=== PATIENT | male | born 1965 | race Hispanic/Latino ===

== ENCOUNTER 2021-08-17 07:21 | Day surgery (SDC) | payer OTHER ==
[2021-08-14 16:14] LABS: Absolute Lymphocytes (CBC) 1.9 K/uL (0.7-4.9); Lymphocytes % 23.3 % (15.3-44.8); MPV 8.1 fL (7.6-11.3); RBC Red Blood Cell Count 3.39 M/uL (4.33-5.43)
[2021-08-14 16:24] LABS: Protime INR 0.94
--- NOTE | 2021-08-14 16:43 | RAD REPORT ---
EXAM DESCRIPTION: Ty Ward And Elizabeth (2 Views)08/14/2021 4:09 pm CLINICAL HISTORY: Preop COMPARISON: None FINDINGS: The lungs appear clear of acute infiltrate. The heart is normal size IMPRESSION: No acute abnormalities displayed
[2021-08-17] MEDS ORDERED: NA CHLORIDE 0.9% 1,000 ML ONE (07:45)
[2021-08-17 08:14] VITALS: O2SAT 100
[2021-08-17] MEDS ORDERED: propofoL 200 MG/20 ML VIAL IV ONE ×2 (08:31)
[2021-08-17] MEDS ORDERED: LIDOCAINE 1% MPF 5 ML VIAL ONE (08:31)
[2021-08-17] MEDS ORDERED: MIDAZOLAM HCL 2 MG/2 ML INJ ONE (08:31)
--- NOTE | 2021-08-17 09:08 | ENDO RPT ---
[address], [address] EGD PROCEDURE REPORT EXAM DATE: 08/17/2021 PATIENT NAME: Zach Isabel MR#: [id number] BIRTHDATE: 1965 ATTENDING: Chato Suggs DR STATUS: outpatient SHAGGER: Mora Araujo RN and Nicanor Jose [facility] INDICATIONS: The patient is a 55 yr old Male here for an EGD due to anemia PROCEDURE PERFORMED: EGD with biopsy for H. pylori MEDICATIONS: Per Anesthesia. TOPICAL ANESTHETIC: none CONSENT: The patient understands the risks and benefits of the procedure and understands that these risks include, but are not limited to: sedation, allergic reaction, infection, perforation and/or bleeding. Alternative means of evaluation and treatment include, among others: physical exam, x-rays, and/or surgical intervention. The patient elects to proceed with this endoscopic procedure. DESCRIPTION OF PROCEDURE: During intra-op preparation period all mechanical medical equipment was checked for proper function. Hand hygiene and appropriate measures for infection prevention was taken. Procedure, possible complications, and alternatives including but not limited to the possibility of bleeding, perforation, tear, infection, sepsis, need for surgery, need for blood transfusion, and anesthesia related complications were explained to the patient. After the risks, benefits and alternatives of the procedure were thoroughly explained, Informed consent was verified, confirmed and timeout was successfully executed by the treatment team. The patient was placed in the left lateral position. The patient was anesthetized with topical anesthesia. Through the anesthetized oropharyngeal area, the scope was passed without any difficulty. The [id number] ([id number]) endoscope was introduced through the mouth and advanced to the second portion of the duodenum. Retroflexed views revealed a small hiatal hernia. The gastroscope was then slowly withdrawn and removed. Mild gastritis was found in the body and the antrum of the stomach. A biopsy for H. pylori was taken. Multiple biopsies were obtained and sent to pathology. A small hiatal hernia was found in the gastroesophageal junction. A biopsy for H. pylori was taken. ADVERSE EVENTS: There were no complications. IMPRESSIONS: 1. Mild gastritis was found in the body and the antrum of the stomach 2. A small hiatal hernia was found in the gastroesophageal junction RECOMMENDATIONS: 1. follow-up: office 2 week(s) 2. anti-reflux regimen 3. await biopsy results 4. follow-up of helicobacter pylori status, treat if indicated REPEAT EXAM: Chato Suggs DR eSigned: Chato Suggs DR 08/17/2021 9:07 AM cc: CPT CODES: ICD9 CODES: PATIENT NAME: Zach Isabel MR#: [id number]
--- NOTE | 2021-08-17 09:10 | ENDO RPT ---
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 INDICATIONS: The patient is a 55 yr old Male here for a colonoscopy due to anemia PROCEDURE PERFORMED: Screening Colonoscopy and Colonoscopy MEDICATIONS: Per Anesthesia. ESTIMATED BLOOD LOSS: None CONSENT: The patient understands the risks and benefits of the procedure and understands that these risks include, but are not limited to: sedation, allergic reaction, infection, perforation and/or bleeding. Alternative means of evaluation and treatment include, among others: physical exam, x-rays, and/or surgical intervention. The patient elects to proceed with this endoscopic procedure. DESCRIPTION OF PROCEDURE: During intra-op preparation period all mechanical medical equipment was checked for proper function. Hand hygiene and appropriate measures for infection prevention was taken. Procedure, possible complications, alternatives including, but not limited to possibility of bleeding, perforation, tear, infection, sepsis, need for surgery, need for blood transfusion, were explained to the patient. After the risks, benefits and alternatives of the procedure were thoroughly explained, Informed consent was verified, confirmed and timeout was successfully executed by the treatment team. The patient was placed in the left lateral position. A digital rectal exam was performed and revealed increased firmness of the prostate, A digital rectal exam was performed and revealed an enlarged prostate, and A digital rectal exam was performed and revealed internal hemorrhoids. After appropriate level of anesthesia, the scope was passed. The [id number] ([id number]) endoscope was introduced through the anus and advanced to the cecum, which was identified by both the appendix and ileocecal valve. The quality of the prep was fair. The instrument was then slowly withdrawn as the colon was fully examined. Scope withdrawal time was 10 minutes. COLON FINDINGS: Small internal hemorrhoids were found. The colon mucosa was otherwise normal. Retroflexed views revealed no abnormalities. The scope was then completely withdrawn from the patient and the procedure terminated. ADVERSE EVENTS: There were no complications. IMPRESSIONS: 1. Small internal hemorrhoids 2. The colon mucosa was otherwise normal RECOMMENDATIONS: 1. avoid NSAIDS for 2 weeks 2. fiber rich diet 3. follow-up: office 2 week(s) 4. Monitor for any evidence of rectal bleeding. 5. hemorrhoidal hygiene 6. yearly hemoquant RECALL: Return in 5 year(s) for Colonoscopy. Chato Suggs DR eSigned: Chato Suggs DR 08/17/2021 9:10 AM cc: CPT CODES: ICD9 CODES: PATIENT NAME: Zach Isabel MR#: [id number]
[2021-08-17 09:58] VITALS: BP 106/56; TEMP 97.6
== END 2021-08-17 09:48 | disposition home or self-care (01) ==
LOC: OR 07:21 → EDBD 08:30 → OR 09:48
PROVIDERS: ATTEND Surgery
PROC: 0DB68ZX Excision of Stomach, Via Natural or Artificial Opening Endoscopic, Diagnostic (ICD-10-PCS; 2021-08-17)
PROC: 0DB48ZX Excision of Esophagogastric Junction, Via Natural or Artificial Opening Endoscopic, Diagnostic (ICD-10-PCS; 2021-08-17)
PROC: 0DJD8ZZ Inspection of Lower Intestinal Tract, Via Natural or Artificial Opening Endoscopic (ICD-10-PCS; 2021-08-17)
PROC: 0DB98ZX Excision of Duodenum, Via Natural or Artificial Opening Endoscopic, Diagnostic (ICD-10-PCS; principal; 2021-08-17 08:30)
PROC: 0DB78ZX Excision of Stomach, Pylorus, Via Natural or Artificial Opening Endoscopic, Diagnostic (ICD-10-PCS; 2021-08-17 08:30)
DX: D50.0 Iron deficiency anemia secondary to blood loss (chronic) (principal); K29.50 Unspecified chronic gastritis without bleeding; K64.8 Other hemorrhoids; N40.0 Benign prostatic hyperplasia without lower urinary tract symptoms; K21.00 Gastro-esophageal reflux disease with esophagitis, without bleeding; K52.9 Noninfective gastroenteritis and colitis, unspecified; R53.83 Other fatigue; R14.0 Abdominal distension (gaseous); Z20.822 Contact with and (suspected) exposure to COVID-19
CPT/HCPCS: 93005; 85025; 36415; 88312 ×2; 85610; 82947 ×2; 88305; 85730; 71046; 43239; 45378; U0003; J2704 ×2; J2250; J7030

== ENCOUNTER 2022-04-09 13:05 | Inpatient (IN) | payer OTHER ==
--- OUTSIDE RECORDS SUMMARY | 2022-04-09 13:09 | XMS REPORT | Continuity of Care Document ---
:1965 Author Organization [facility] t Address [address] [place] [address] Care Team Providers Name Role Phone AmezcuaEliazar santiagomyra Ambrose Primary Care Physician SHILPI IRVING Attending Clinician Unavailable Shilpi Irving Attending Clinician Unavailable Doctor Unassigned, [facility] Attending Clinician Unavailable Louisa Storey RN Attending Clinician CODY GONZALEZ Attending Clinician Unavailable Kate Mcdonough Attending Clinician Cody Gonzalez MD Attending Clinician ROCIO_T Attending Clinician Unavailable Chato Suggs Attending Clinician [phone] CODY GONZALEZ Admitting Clinician Unavailable Cody Gonzalez MD Admitting Clinician ROCIO_Sarthak Admitting Clinician Unavailable Payers Payer Name Policy Type Policy Number Effective Date Expiration Date [facility] [id number] 2020 [facility] 00:00:00 ON LICENSE OF [facility] 3 SHARE PROGRAM (HMO) Problems Condition Condition Condition Status Onset Resolution Last Treating Co mments Source Name Details Category Date Date Treatment Clinician Date Obesity Obesity Disease Active Univers (BMI (BMI 2-15 ity of 30-39.9) 30-39.9) 00:00: [place] 00 Medical [place] Osteomyeli Osteomyeli Disease Active U nivers tis of tis of 2-14 ity of fourth [place] of left of left Medical foot foot Branch Allergies, Adverse Reactions, Alerts Allergy Allergy Status Severity Reaction(s) Onset Inactive Treating Comm ents Source Name Type Date Date Clinician No Known DA Active U 2021-04 [facility] Drug -04 Allergie 00:00: s No Known DA Active U [facility]03 Allergie 00:00: s 00 NO KNOWN Drug Active Univers ALLERGIE Class ity of S [facility] Social History Social Habit Start Date Stop Date Quantity Comments Source Exposure to Not sure [facility]-CoV- [facility] (event) [place] Tobacco use and 2021-06-01 2021-06-01 Smokeless tobacco Un iversity of exposure 00:00:00 00:00:00 non-user [facility] Sex Assigned At [birth year] Universit y of 00:00:00 00:00:00 [facility] Smoking Status Start Date Stop Date Source Never smoked tobacco [facility] Medications Ordered Filled Start Stop Current Ordering Indication Dosage Frequency Signature Comments Components Source Medication Medication Date Date Medication? Clinician (SIG) Name Name collagenase Yes [id number] Apply to Univers 250 2-19 affected ity of unit/gram 00:00: area(s) [place] ointment 00 daily. Medical Branch NaCl 0.9% Yes 2g Infuse 2 g Un ajay (NS) PgBk 2-19 every 24 ity of 100 mL with 00:00: (twenty-fo [place] cefTRIAXone 00 ur) hours. Me dical 2 gram SolR Branch 2 g collagenase Yes [id number] Apply to Univers 250 2-19 affected ity of unit/gram 00:00: area(s) [place] ointment 00 daily. Medical Branch NaCl 0.9% Yes 2g Infuse 2 g Un ajay (NS) PgBk 2-19 every 24 ity of 100 mL with 00:00: (twenty-fo [place] cefTRIAXone 00 ur) hours. Me dical 2 gram SolR Branch 2 g collagenase Yes [id number] Apply to Univers 250 2-19 affected ity of unit/gram 00:00: area(s) [place] ointment 00 daily. Medical Branch NaCl 0.9% 0 Yes 2g Infuse 2 g Un ajay (NS) PgBk 2-19 every 24 ity of 100 mL with 00:00: (twenty-fo [place] cefTRIAXone 00 ur) hours. Me dical 2 gram SolR Branch 2 g cefTRIAXone 0 Yes 2000mg 2,000 mg, Univers (ROCEPHIN) 2-18 IV ity of 2,000 mg in 17:30: Piggyback, [place] NaCl 0.9% 00 Q24H ABX, Medic al (NS) 100 mL First dose Br anch MINI-BAG on Tue06/05/21 at 1130, Until Discontinu ed, Administer over 30 Minutes, 100 mL
Reas on for Anti-Infec tive: Documented Infection< br>Documen chato Infection Site: Skin / Soft Tissue
Duration of Therapy: Other (see Comments) aspirin 81 2021-0 Yes 81mg Take 81 mg U nivers mg chewable 2-18 by mouth ity of tablet 16:21: daily. [address] metFORMIN 2021-0 Yes 1000mg Take 1,000 Univers 1,000 mg 2-18 mg by ity of tablet 16:21: mouth 2 [place] [address] ([facility]) [facility] daily with meals. lisinopriL 2021-0 Yes 20mg Take 20 mg U nivers 20 mg 2-18 by mouth 2 ity of tablet 16:21: (two) [place] [address] times [facility] daily. Branch aspirin 81 2021-0 Yes 81mg Take 81 mg U nivers mg chewable 2-18 by mouth ity of tablet 16:21: daily. [address] metFORMIN 2021-0 Yes 1000mg Take 1,000 Univers 1,000 mg 2-18 mg by ity of tablet 16:21: mouth 2 [place] [address] ([facility]) [facility] daily with meals. lisinopriL 2022-0 Yes 20mg Take 20 mg U nivers 20 mg 2-18 by mouth 2 ity of tablet 16:21: (two) [address] daily[address] Branch aspirin 81 2021-0 Yes 81mg Take 81 mg U nivers mg chewable 2-18 by mouth ity of tablet 16:21: daily. [place] 19 Medical Branch metFORMIN 0 Yes 1000mg Take 1,000 Univers 1,000 mg 2-18 mg by ity of tablet 16:21: mouth 2 [place] 19 (two) Medical times Branch daily with meals. lisinopriL Yes 20mg Take 20 mg U nivers 20 mg 2-18 by mouth 2 ity of tablet 16:21: (two) [place] 19 times Medical daily. Branch ciprofloxac 2021- No 500mg Take 500 Univers in HCl 2-18 02-18 mg by ity of (CIPRO) 500 13:59: 00:00 [place] mg tablet 00 :00 every 12 Medica l (twelve) Branch hours. metroNIDAZO 2021- No 500mg Take 500 Univers LE 500 mg 2-18 02-18 mg by ity of tablet 13:59: 00:00 mouth [place] 00 :00 every 8 Medical (eight) Branch hours. vancomycin Yes 1250mg 1,250 mg, Univers 1250 mg in 2-18 IV ity of NS 250 mL 02:30: Infusion, [place] as RTU IV 00 Q8H ABX, Medical Piggyback First dose Bran ch 1,250 mg on Cindy 06/04/21 at 2030, Until Discontinu ed, Administer over 90 Minutes
Reason for Anti-Infec tive: Documented Infection< br>Documen chato Infection Site: Bone
Du ration of Therapy: Other (see Comments) vancomycin/ 2021- No 1250mg 1,250 mg Univers 0.9 % sod 18 -23 by IV ity of chloride 00:00: 04:59 [place] (VANCOMYCIN 00 :00 route Medical 1250 MG IN every 8 Branch NS 250 ML) (eight) 1.25 hours. gram/250 mL Soln vancomycin/ 2021- No 1250mg 1,250 mg Univers 0.9 % sod 18 03-23 by IV ity of chloride 00:00: 04:59 [place] (VANCOMYCIN 00 :00 route Medical 1250 MG IN every 8 Branch NS 250 ML) (eight) 1.25 hours. gram/250 mL Soln sennosides 2021- No [id number] 8.6mg Take 1 Univers 8.6 mg 2-18 -21 tablet by ity of tablet 00:00: 04:59 mouth [place] 00 :00 daily for Medical 30 days. [place] docusate No [id number] 100mg Take 1 Univers 100 mg 2-18 - capsule by ity of capsule 00:00: 04:59 mouth [place] 00 :00 daily for Medical 30 days. [place] sennosides No [id number] 8.6mg Take 1 Univers 8.6 mg 2-18 - tablet by ity of tablet 00:00: 04:59 mouth [place] 00 :00 daily for Medical 30 days. [place] docusate No [id number] 100mg Take 1 Univers 100 mg 2-18 - capsule by ity of capsule 00:00: 04:59 mouth [place] 00 :00 daily for Medical 30 days. [place] lidocaine 5mL 5 mL, Univer s 1% (PF) 06-04 Subcutaneo ity o f (XYLOCAINE) 18:00: 21:45 us, ONCE, [place] injection 5 00 :00 1 dose, On Me dical mL [facility] 06/04/21 at 1200, Routine NaCl 0.9% Yes 10mL 10 mL, Univer s (NS) 06-04 Slow IV ity of injection 17:53: Push, PRN, [place] 10 mL 22 Starting Medical on [facility] 06/04/21 at 1153, Until Discontinu ed, Routine, line maintenanc e sennosides Yes 8.6mg 8.6 mg, Uni vers (SENOKOT) 06-04 Oral, BID, ity of tablet 8.6 14:00: First dose [place] mg 00 on [facility] 06/04/21 at Branch 0800, Until Discontinu ed, Routine polyethylen No 17g 17 g, Univ ers e glycol 06-04 Oral, ity of 3350 powder 13:30: 14:14 ONCE, 1 [place] 17 g 00 :00 dose, On Medical [facility] 06/04/21 at 0730, Routine vancomycin No 1000mg 1,000 mg, Univers (VANCOCIN) 2-16 -17 IV ity of 1,000 mg in 18:00: 20:26 [place], [place] NaCl 0.9% 00 :54 Q8H ABX, Medica l (NS) 250 mL First dose Br anch VIAL-MATE on Tue IV 06/03/21 at piggyback 1200, Until Discontinu ed, Administer over 60 Minutes, 250 mL
Reas on for Anti-Infec tive: Documented Infection< br>Documen chato Infection Site: Blood
D uration of Therapy: 7 days aspirin 2021-0 Yes 81mg 81 mg, Univers chewable 2-16 Oral, ity of tablet 81 15:00: DAILY, [place] mg 00 First dose Medical on Tue [place] 06/03/21 at 0900, Until Discontinu ed, Routine enoxaparin 0 Yes 40mg 40 mg, Unive rs (LOVENOX) 2-16 Subcutaneo ity of injection 15:00: us, DAILY, [place] 40 mg 00 First dose Medical on Tue [place] 06/03/21 at 0900, Until Discontinu ed, Routine collagenase 2021-0 Yes Topical Uni vers (SANTYL) 2-16 (Apply To ity of ointment 01:00: Affected [place] 00 Areas), Medical DAILY, Branch First dose on Tue06/02/21 at 1900, Until Discontinu ed, Routine lisinopriL 0 Yes 20mg 20 mg, Unive rs (PRINIVIL,Z 2-15 Oral, BID, it y of ESTRIL) 22:00: First dose [place] tablet 20 00 on Tue [facility] mg 06/02/21 at Branch 1600, Until Discontinu ed, Routine docusate 2021-0 Yes 100mg 100 mg, Unive rs (COLACE) 2-15 Oral, BID, ity o f capsule 100 02:00: First dose [place] mg 00 on Tue [facility] 06/01/21 at Branch 2000, Until Discontinu ed, Routine NaCl 0.9% 2021-0 Yes 1000mL at 100 Univ ers (NS) IV 2-14 mL/hr, IV ity of infusion 23:30: Infusion, [place] 1,000 mL 00 CONTINUOUS Medic al , Starting Branch on Tue06/01/21 at 1730, Until Discontinu ed, Routine Sliding 2022-0 Yes Subcutaneo Univ ers Scale 2-14 us, TID ity of Insulin - 23:00: MEALS+HS, [place] Lispro 00 First dose Medical (HumaLOG) + on Tue Branch Fsbg 06/01/21 at Testing 1700, Until Discontinu ed, Routine NaCl 0.9% 0 202- No 30mL/kg at 999 Un ajay (NS) bolus 06-01-14 mL/hr, ity of infusion 22:45: 22:39 2,448 mL [place] 2,448 mL 00 :00 (30 mL/kg Medica l ?81.6 kg), Branch IV Infusion, ONCE, 1 dose, On Tue06/01/21 at 1645, STAT ondansetron Yes 4mg 4 mg, Slow Univers (ZOFRAN 06-01 IV Push, ity of (PF)) 22:25: Q6HPRN, [place] injection 4 41 Starting Medi karlo mg on Tue Branch 06/01/21 at 1625, Until Discontinu ed, Routine, Nausea and Vomiting (N/V) acetaminoph Yes 650mg 650 mg, Un ajay en 14 Oral, ity of (TYLENOL) 22:25: Q6HPRN, [place] tablet 650 23 Starting Medic al mg on Tue Branch 06/01/21 at 1625, Until Discontinu ed, Routine, Pain (scale 1-3), Temp > 38.5 C piperacilli 0 2021- No 3.375g 3.375 g, Univers n-tazobacta 06-01-14 IV ity of m (ZOSYN) 21:15: 21:12 [place]gyback, [place] 3.375 g in 00 :00 ONCE, 1 Medica l NaCl 0.9% dose, On Branch (NS) 100 mL Mon MINI-BAG 06/01/21 at 1515, Administer over 30 Minutes, 100 mL
Reas on for Anti-Infec tive: Documented Infection< br>Documen chato Infection Site: Skin / Soft Tissue
Duration of Therapy: Other (see Comments) atorvastati atorvastati No atorvastat [place] n 20 mg n 20 mg in 20 mg Commu ni tablet TAKE tablet TAKE tablet ty 1 TABLET BY 1 TABLET BY TAKE 1 Hospita MOUTH ONCE MOUTH ONCE TABLET BY l DAILY IN DAILY IN MOUTH ONCE C linics THE EVENING THE EVENING DAILY IN WITH SUPPER WITH SUPPER THE EVENING WITH SUPPER gabapentin gabapentin No gabapentin [place] 300 mg 300 mg 300 mg Communi capsule capsule capsule ty TAKE 1 TAKE 1 TAKE 1 Hospita CAPSULE BY CAPSULE BY CAPSULE BY l MOUTH TWICE MOUTH TWICE MOUTH Clinics DAILY DAILY TWICE DAILY glimepiride glimepiride No glimepirid [place] 2 mg tablet 2 mg tablet e 2 mg Communi TAKE 1 TAKE 1 tablet ty TABLET BY TABLET BY TAKE 1 Hos padmini MOUTH ONCE MOUTH ONCE TABLET BY l DAILY IN DAILY IN MOUTH ONCE C linics THE MORNING THE MORNING DAILY IN WITH WITH THE BREAKFAST BREAKFAST MORNING WITH BREAKFAST glyburide 5 glyburide 5 No glyburide [place] mg tablet mg tablet 5 mg Commu ni TAKE 1 TAKE 1 tablet ty TABLET BY TABLET BY TAKE 1 Hos padmini MOUTH ONCE MOUTH ONCE TABLET BY l DAILY WITH DAILY WITH MOUTH ONCE Clinics BREAKFAST BREAKFAST DAILY WITH OR THE OR THE BREAKFAST FIRST MAIN FIRST MAIN OR THE MEAL OF THE MEAL OF THE FIRST MAIN DAY. DAY. MEAL OF THE DAY. lisinopril lisinopril No lisinopril [place] 10 mg 10 mg 10 mg Communi tablet TAKE tablet TAKE tablet ty 1 TABLET BY 1 TABLET BY TAKE 1 Hospita MOUTH ONCE MOUTH ONCE TABLET BY l DAILY DAILY MOUTH ONCE Clinics DAILY lisinopril lisinopril No lisinopril [place] 20 mg 20 mg 20 mg Communi tablet TAKE tablet TAKE tablet ty 1 TABLET BY 1 TABLET BY TAKE 1 Hospita MOUTH ONCE MOUTH ONCE TABLET BY l DAILY DAILY MOUTH ONCE Clinics DAILY metformin metformin No metformin [place] 1,000 mg 1,000 mg 1,000 mg Com kacy tablet TAKE tablet TAKE tablet ty 1 TABLET BY 1 TABLET BY TAKE 1 Hospita MOUTH TWICE MOUTH TWICE TABLET BY l DAILY DAILY MOUTH Clinics TWICE DAILY omeprazole omeprazole No omeprazole [place] 40 mg 40 mg 40 mg Communi capsule,del capsule,del capsule,de ty ayed ayed layed Hospita release release release l TAKE 1 TAKE 1 TAKE 1 Clinics CAPSULE BY CAPSULE BY CAPSULE BY MOUTH IN MOUTH IN MOUTH IN THE MORNING THE MORNING THE 1 2 HOUR 1 2 HOUR MORNING 1 BEFORE BEFORE 2 HOUR BREAKFAST BREAKFAST BEFORE BREAKFAST Vital Signs Vital Name Observation Time Observation Value Comments Source Systolic blood 2021-06-05 17:02:00 168 mm[Hg] Univer sity of pressure [facility] Diastolic blood 2021-06-05 17:02:00 87 mm[Hg] [facility] of [facility] Heart rate 2021-06-05 17:02:00 80 /min [facility] Body temperature 2021-06-05 17:02:00 36.56 [facility] Respiratory rate 2021-06-05 17:02:00 18 /min [facility] acute hospital Oxygen saturation in 2021-06-05 17:02:00 100 /min [facility] Arterial blood by [facility] Pulse oximetry [place] Body height 2021-06-02 02:07:00 165.1 cm [facility] Body weight 2021-06-02 02:07:00 87.091 kg [facility] BMI 2021-06-02 02:07:00 31.95 kg/m2 [facility] Procedures Procedure Date / Time Performing Clinician Source Performed REFERRAL- 2021-12-22 05:01:00 Doctor Unassigned, [facility] REQUEST/RESPONSE [facility] POCT GLUCOSE (AUTOMATED) 2021-06-05 17:32:00 Cody Gonzalez [facility] POCT GLUCOSE (AUTOMATED) 2021-06-05 13:25:00 Cody Gonzalez [facility] CBC WITH DIFF 2021-06-05 09:26:00 Demar Mendoza [facility] BASIC METABOLIC PANEL 2021-06-05 09:26:00 Demar Mendoza [facility] (NA, K, CL, CO2, GLUCOSE, Medica l Branch BUN, CREATININE, CA) POCT GLUCOSE (AUTOMATED) 2021-06-05 02:05:00 Cody Gonzalez [facility] POCT GLUCOSE (AUTOMATED) 2021-06-04 23:06:00 Cody Gonzalez [facility] XR CHEST 1 VW 2021-06-04 22:30:02 Cody Gonzalez o f [facility] VANCOMYCIN TROUGH 2021-06-04 17:23:00 Martine Butler [facility] POCT GLUCOSE (AUTOMATED) 2021-06-04 17:06:00 Cody Gonzalez [facility] POCT GLUCOSE (AUTOMATED) 2021-06-04 13:29:00 Cody Gonzalez [facility] CBC WITH DIFF 2021-06-04 08:33:00 Demar Mendoza [facility] BASIC METABOLIC PANEL 2021-06-04 08:33:00 Demar Mendoza [facility] (NA, K, CL, CO2, GLUCOSE, Medica l Branch BUN, CREATININE, CA) POCT GLUCOSE (AUTOMATED) 2021-06-04 01:56:00 Cody Gonzalez [facility] POCT GLUCOSE (AUTOMATED) 2021-06-03 22:22:00 Cody Gonzalez [facility] SEDIMENTATION RATE 2021-06-03 21:58:00 Marsha Pickens [facility] C-REACTIVE PROTEIN 2021-06-03 21:58:00 Marsha Pickens [facility] POCT GLUCOSE (AUTOMATED) 2021-06-03 17:14:00 Cody Gonzalez [facility] LOWER EXTREMITY ARTERIAL 2021-06-03 16:02:00 Neo Natarajan [facility] DUPLEX BILATERAL - BY Medical [facility] VASCULAR LAB POCT GLUCOSE (AUTOMATED) 2021-06-03 13:42:00 Cody Gonzalez [facility] CBC WITH DIFF 2021-06-03 10:21:00 Aysha Carrington [facility] BASIC METABOLIC PANEL 2021-06-03 10:21:00 Aysha Carrington [facility] (NA, K, CL, CO2, GLUCOSE, Medica l Branch BUN, CREATININE, CA) VANCOMYCIN TROUGH 2021-06-03 10:21:00 Alber Hector [facility] POCT GLUCOSE (AUTOMATED) 2021-06-03 02:45:00 Cody Gonzalez [facility] POCT GLUCOSE (AUTOMATED) 2021-06-02 23:04:00 [place], Cody [facility] POCT GLUCOSE (AUTOMATED) 2021-06-02 17:28:00 Carlos [facility] POCT GLUCOSE (AUTOMATED) 2021-06-02 13:30:00 [facility] WITH DIFF 2021-06-02 10:38:[address] [facility] BASIC METABOLIC PANEL 2021-06-02 10:38:00 Carlos [facility] (NA, K, CL, CO2, GLUCOSE, Medica l Branch BUN, CREATININE, CA) POCT GLUCOSE (AUTOMATED) 2021-06-02 02:57:00 [facility] ([facility]) 2021-06-01 23:20:00 [facility] BLO[facility] 2021-06-01 20:40:00 [facility] CBC WITH DIFF 2021-06-01 20:39:00 Kate Kramer [facility] GLYCOSYLATED HEMOGLOBIN 2021-06-01 20:39:00 Carlos [facility] (A1C) Medical Branch COVID-19 (ID NOW RAPID 2021-06-01 20:39:00 Kate Krmaer [facility] TESTING) Medical Branch LAB ONLY COVID 2021-06-01 20:39:00 Kate Kramer [facility] INTERPRETATION [facility] BLOOD CULTURE SCREEN 2021-06-01 20:39:00 [facility] COMP. METABOLIC PANEL 2021-06-01 20:39:00 Kate [facility] ([id number]) Medical Branch XR FOOT 3+ VW LEFT 2021-06-01 20:25:00 Kate Kramer [facility] US, gallbladder 2020-10-09 00:00:00 [facility] Plan of Care Planned Activity Planned Date Details Comments Source Diagnostic Test 2020-10-09 CMP, serum or Critical access hospital Pending 00:00:00 plasma [code = Hospital Clin ics CMP, serum or plasma] Diagnostic Test 2020-10-09 CBC w/ auto diff [place] C ommunity Pending 00:00:00 [code = CBC w/ Hospital Clin ics auto diff] Diagnostic Test 2020-10-09 lipase, serum or [place] C ommunity Pending 00:00:00 plasma [code = Hospital Clin ics lipase, serum or plasma] Diagnostic Test 2020-10-09 culture, stool [place] Com munity Pending 00:00:00 [code = culture, Hospital Cl inics stool] Diagnostic Test 2020-10-09 O&P (ova & [place] Commu nity Pending 00:00:00 parasites), stool Hospital C linics [code = O&P (ova & parasites), stool] Diagnostic Test 2020-10-09 wbc, stool [code = [place] Community Pending 00:00:00 wbc, stool] Hospital Clinic s Encounters Start End Encounter Admission Attending Care Care Encounter Source Date/Time Date/Time Type Type Clinicians Facility Department ID 2022-01-27 [id number] 13:30:00 [id number] [facility] 2022-02-19 2022-02-19 Outpatient Elective Maria Fernanda [facility] [id number] [facility] 06:34:00 14:45:00 Shilpi 72 2022-02-19 2022-02-19 Outpatient [facility] [id number] [facility] 06:34:00 06:34:00 72 2021-12-22 2021-12-22 Orders Doctor BROOKE [id number] Univers 00:00:00 00:00:00 Only Unassigned, SAMM [id number] ity of [facility] [id number] [place] [id number] Medi karlo 009 Branch 2021-06-08 2021-06-08 Transition KRISTY Storey [id number] Univers 00:00:00 00:00:00 of Care Louisa TIRADO [id number] i ty of [place] [id number] [place] [id number] Medi kar[place] 403 Branch 2021-06-01 2021-06-05 Inpatient X CARLOS [facility] SAMUEL [id number] Univers 13:42:00 16:20:00 CODY javedmarc [facility] [facility] 2021-06-01 2021-06-05 [facility] Kate Kramer [facility] [id number] Univers 13:42:00 16:20:00 Encounter Cody [id number] [facility] [id number] [facility] [id number] [facility] 081 Branch 2020-10-09 2020-10-09 Outpatient ROCIO_T [facility] [place] 11:03:00 11:03:00 0624 [facility] 2020-10-09 2020-10-09 [facility] [place] 00:00:00 00:00:00 [facility] MD: [address] [facility] [address] [place], Specialty l [address] [place] [address] , Ph. 2020-10-09 2020-10-09 Outpatient Rocio [facility] [id number] 00:00:00 00:00:00 Chato [id number] [place] [id number] 2020-09-30 2020-09-30 Outpatient WILEY [facility] [place] 10:32:00 10:32:00 0615 [facility] ty [facility] Results Test Description Test Time Test Comments Results Result Comments Source Complete Blood Count w/o Diff 2022-02-19 08:30:00 Test Item Value Reference Range Interpretation Comme nts White Blood Count (test code = WBCT) 6.7 x10 3/uL 4.4-10.5 N Red Blood Count (test code = RBC) 3.08 x10 6/uL 4.10-5.70 L Hemoglobin (test code = HGBT) 8.6 g/dL 13.4-17.4 L Hematocrit (test code = HCTT) 26.7 % 38.7-52.0 L Mean Corpuscular Volume (test code = MCV) 86.70 fL 80.00-100.00 N Mean Corpuscular Hemoglobin (test code = MCH) 27.9 pg 27.0-32. 5 N Mean Corpuscular HGB Conc (test code = MCHC) 32.20 g/dL 32.00-37. 50 N RDW Coefficient of Variation (test code = RDWCV) 15.5 % 11.5- 14.5 H Platelet Count (test code = PLTT) 400.0 x10 3/uL 140.0-440.0 N Mean Platelet Volume (test code = MPV) 10.1 fL nRBC Abs (test code = NRBCA) 0 nRBC Pct (test code = NRBCP) 0 % Prothrombin Time [id number] 08:30:00 Test Item Value Reference Range Interpretation Comments Prothrombin Time 10.8 Seconds 9.3-12.1 N (test code = PT) INR (test code = 1.0 ratio 0.9-1.2 N Reference I nterval is INR) for non-anticoagula chato patients.Sugges chato INR Therapeutic Range for Vitamin K antogonistthera py:LEV ELS OFTHERAPY INDICATIONS TAR GET INR RANGEStanda rd Dose Venous Thrombosis, 2.0 - 3.0 Atrial Fibrilla tion, Pulmonary Embolism.High D ose Valvular Heart Disease, 2.5 - 3.5 Mechanical Hear t, Intracardiac Thrombosis. Partial Thromboplastin [id number] 08:30:00 Test Item Value Reference Range Interpretation Comments Partial Thromboplastin Time 30.3 Seconds 23.9-32.8 N (test code = PTT) Comprehensive Metabolic [id number] 08:30:00 Test Item Value Reference Range Interpretation Comments SODIUM (test code = NA) 137.0 mmol/L 136.0-145.0 N Potassium,K (test code = K) 4.6 mmol/L 3.0-5.1 N Chloride (test code = CL) 104 mmol/L 98-107 N Carbon Dioxide (test code = CO2) 24 mmol/L 20-31 N Anion Gap (test code = GAP) 9 mmol/L 5-15 N Blood Urea Nitrogen (test code = 38 mg/dL 9-23 H BUN) Creatinine (test code = CREATT) 1.40 mg/dL 0.55-1.02 H Creatinine Clr Calc Pharmacy 62.88 mL/min (test code = CRCLPHA) Estimated GFR ( Nancy > 60 mL/min/1.73m2 (test code = EGFRAA) Estimated GFR (Non Afr Nancy 56 mL/min/1.73m2 (test code = EGFRNAA) BUN/Creatinine Ratio (test code 27 ratio 10-20 H = BCRATIO) Glucose (test code = GLU) 102 mg/dL 74-106 N Osmolality,Calculated (test code 292.5 = OSMOC) Calcium (test code = CA) 8.9 mg/dL 8.3-10.6 N Bilirubin,Total (test code = 0.2 mg/dL 0.2-1.1 N BILIT) Aspartate Amino Transferase 13 U/L 0-34 N (test code = AST) Alanine Aminotransferase (test 15 U/L 10-49 N code = ALT) Total Protein (test code = TP) 8.4 g/dL 5.7-8.2 H Albumin Level (test code = ALB) 4.6 g/dL 3.2-4.8 N Globulin (test code = GLOB) 3.8 mg/dL 2.3-3.5 H Albumin/Globulin Ratio (test 1.2 ratio 0.8-2.0 N code = AGRATIO) Alkaline Phosphatase (test code 113 U/L 46-116 N = ALP) Lipid [id number] 08:30:00 Test Item Value Reference Range Interpretation Comments Triglycerides (test code 135 mg/dL 9-200 N = TRIG) Cholesterol (test code = 104 mg/dL 0-200 N CHOL) LDL 46 mg/dL 0-130 N LDL (mg/dL)Opti mal Cholesterol,Calculated <100N ear Optimal (test code = LDLC) 100-129Bo rderline High 130-159Hig h 160-189Very Hig h >=190 VLDL CHOLESTEROL (test 27 mg/dL code = VLDL) HDL Cholesterol (test 31 mg/dL 40-60 L code = HDL) LDL/HDL Ratio (test code 1 = LDLHDL) Chol/HDL Ratio (test code 3.4 ratio 0.0-5.0 N = CHLHDL) POCT GLUCOSE (AUTOMATED)2021-06-05 17:40:57 Test Item Value Reference Range Interpretation Comments POCT GLU (test code = 8699452070) 198 mg/dL 70-110 H Lab Interpretation (test code = Abnormal 81548-1) [facility] GLUCOSE (AUTOMATED)2021-06-05 13:46:20 Test Item Value Reference Range Interpretation Comments POCT GLU (test code = 7643646158) 236 mg/dL 70-110 H Lab Interpretation (test code = Abnormal 88775-7) [facility] GLUCOSE (AUTOMATED)2021-06-05 13:46:20 Test Item Value Reference Range Interpretation Comments POCT GLU (test code = 9977730004) 121 mg/dL 70-110 H Lab Interpretation (test code = Abnormal 82974-2) [facility] METABOLIC PANEL (NA, K, CL, CO2, GLUCOSE, BUN, CREATININE, CA)2021-06-05 09:51:41 Test Item Value Reference Range Interpretation Comments NA (test code = 134 mmol/L 135-145 L 8447381183) K (test code = 3.9 mmol/L 3.5-5.0 9038179569) CL (test code = 104 mmol/L 98-108 0522976880) CO2 TOTAL (test code = 27 mmol/L 23-31 6655149689) AGAP (test code = 2-16 3618235140) BUN (test code = 11 mg/dL 7-23 7168100655) GLUCOSE (test code = 140 mg/dL 70-110 H 1318085000) CREATININE (test code = 0.70 mg/dL 0.60-1.25 3062530194) CALCIUM (test code = 8.2 mg/dL 8.6-10.6 L 3783462390) eGFR (test code = mL/min/1.73m2 0198293106) SHIKHA (test code = SHIKHA) Association of Glomerular Filtration Rate (GFR) and Staging of Kidney Disease* + --+ --+ ------+| GFR (mL/min/1.73 m2) ?| With Kidney Damage ?| ?Without Kidney Damage+ --------+ --------+ +| ?>90 ?| ?Stage one ?| ? Normal ?+ ---+ ---+ -------+| ?60-89 ?| ?Stage two ?| ? Decreased GFR ? + --+ --+ ------+| ?30-59 ?| ?Stage three ?| ? Stage three ? + --+ --+ ------+| ?15-29 ?| ?Stage four ? | ? Stage four ?+ ---+ ---+ -------+| ?<15 (or dialysis) ? ?| ?Stage five ? | ? Stage five ?+ ---+ ---+ -------+ *Each stage assumes the associated GFR level has been in effect for at least three months. ?Stages 1 to 5, with or without kidney disease, indicate chronic kidney disease. Notes: Determination of stages one and two (with eGFR >59mL/min/1.73 m2) requires estimation of kidney damage for at least three months as defined by structural or functional abnormalities of the kidney, manifested by either:Pathological abnormalities or Markers of kidney damage (including abnormalities in the composition of the blood or urine or abnormalities in imaging tests). Lab Interpretation Abnormal (test code = 39115-7) [facility] WITH [id number] 09:39:22 Test Item Value Reference Range Interpretation Comments WBC (test code = See_Comment [Automated 1990-2) message] The sy stem which generated this result transmitted reference range : 4.20 - 10.70 10*3/?L. The reference range was not used to interpret this result as normal/abnormal . RBC (test code = See_Comment L [Automated 939-8) message] The sy stem which generated this result transmitted reference range : 4.26 - 5.52 10*6/?L. The reference range was not used to interpret this result as normal/abnormal . HGB (test code = 9.2 g/dL 12.2-16.4 L 718-7) HCT (test code = 27.2 % 38.4-49.3 L 4544-3) MCV (test code = 84.2 fL 81.7-95.6 787-2) MCH (test code = 28.5 pg 26.1-32.7 785-6) MCHC (test code = 33.8 g/dL 31.2-35.0 786-4) RDW-SD (test code = 39.8 fL 38.5-51.6 33084-7) RDW-CV (test code = 13.0 % 12.1-15.4 788-0) PLT (test code = See_Comment H [Automated 777-3) message] The sy stem which generated this result transmitted reference range : 150 - 328 10*3/ ?L. The reference r heather was not used to interpret this result as normal/abnormal . MPV (test code = 9.4 fL 9.8-13.0 L 77567-6) NRBC/100 WBC (test See_Comment [Automat ed code = 1608043917) message] The system which generated this result transmitted reference range : 0.0 - 10.0 /100 WBCs. The refer ence range was not u sed to interpret th is result as normal/abnormal . NRBC x10^3 (test code <0.01 See_Comment [Auto mated = 4589236480) message] The s ystem which generated this result transmitted reference range : 10*3/?L. The reference range was not used to interpret this result as normal/abnormal . GRAN MAT (NEUT) % 61.5 % (test code = 770-8) IMM GRAN % (test code 0.90 % = 6816212711) LYMPH % (test code = 20.3 % 736-9) MONO % (test code = 11.8 % 5905-5) EOS % (test code = 4.7 % 713-8) BASO % (test code = 0.8 % 706-2) GRAN MAT x10^3(ANC) 5.68 10*3/uL 1.99-6.95 (test code = 4043581826) IMM GRAN x10^3 (test 0.08 10*3/uL 0.00-0.06 H code = 0658257254) LYMPH x10^3 (test code 1.87 10*3/uL 1.09-3.23 = 731-0) MONO x10^3 (test code 1.09 10*3/uL 0.36-1.02 H = 742-7) EOS x10^3 (test code = 0.43 10*3/uL 0.06-0.53 711-2) BASO x10^3 (test code 0.07 10*3/uL 0.01-0.09 = 704-7) Lab Interpretation Abnormal (test code = 84926-4) [facility] GLUCOSE (AUTOMATED)2021-06-04 23:17:01 Test Item Value Reference Range Interpretation Comments POCT GLU (test code = 9436549262) 120 mg/dL 70-110 H Lab Interpretation (test code = Abnormal 64979-2) [facility] Please draw trough BEFORE the 4th dose scheduled on 06/04 @ 1200, but no more than 60 mins before the dose is due.2021-06-04 18:52:11 Test Item Value Reference Range Interpretation Comments VANCO TROUGH (test code 11.0 ug/mL 10.0-20.0 = 6803841569) SHIKHA (test code = SHIKHA) Toxic Range: ?>20 ug/mL 15-20 ug/mL is recommended for severe infection or when Vancomycin BLADIMIR is greater than or equal to 2. Lab Interpretation (test Normal code = 14741-1) [facility] GLUCOSE (AUTOMATED)2021-06-04 17:54:13 Test Item Value Reference Range Interpretation Comments POCT GLU (test code = 0552216702) 249 mg/dL 70-110 H Lab Interpretation (test code = Abnormal 56217-2) [facility]-REACT[facility] [id number] 16:15:47 Test Item Value Reference Range Interpretation Comments CRP (test code = 5055128559) 5.4 mg/dL <0.8 H Lab Interpretation (test code = Abnormal 90034-5) [facility] GLUCOSE (AUTOMATED)2021-06-04 14:06:00 Test Item Value Reference Range Interpretation Comments POCT GLU (test code = 4949689734) 157 mg/dL 70-110 H Lab Interpretation (test code = Abnormal 19029-0) [facility] GLUCOSE (AUTOMATED)2021-06-04 13:50:00 Test Item Value Reference Range Interpretation Comments POCT GLU (test code = 8472830213) 204 mg/dL 70-110 H Lab Interpretation (test code = Abnormal 00179-2) [facility] METABOLIC PANEL (NA, K, CL, CO2, GLUCOSE, BUN, CREATININE, CA)2021-06-04 10:26:33 Test Item Value Reference Range Interpretation Comments NA (test code = 136 mmol/L 135-145 3609759224) K (test code = 3.8 mmol/L 3.5-5.0 4649636079) CL (test code = 107 mmol/L 98-108 2025200296) CO2 TOTAL (test code = 25 mmol/L 23-31 5571048183) AGAP (test code = 2-16 6193402401) BUN (test code = 10 mg/dL 7-23 7757990914) GLUCOSE (test code = 138 mg/dL 70-110 H 8037582251) CREATININE (test code = 0.65 mg/dL 0.60-1.25 7626776146) CALCIUM (test code = 8.3 mg/dL 8.6-10.6 L 5760747417) eGFR (test code = mL/min/1.73m2 0034748235) SHIKHA (test code = SHIKHA) Association of Glomerular Filtration Rate (GFR) and Staging of Kidney Disease* + --+ --+ ------+| GFR (mL/min/1.73 m2) ?| With Kidney Damage ?| ?Without Kidney Damage+ --------+ --------+ +| ?>90 ?| ?Stage one ?| ? Normal ?+ ---+ ---+ -------+| ?60-89 ?| ?Stage two ?| ? Decreased GFR ? + --+ --+ ------+| ?30-59 ?| ?Stage three ?| ? Stage three ? + --+ --+ ------+| ?15-29 ?| ?Stage four ? | ? Stage four ?+ ---+ ---+ -------+| ?<15 (or dialysis) ? ?| ?Stage five ? | ? Stage five ?+ ---+ ---+ -------+ *Each stage assumes the associated GFR level has been in effect for at least three months. ?Stages 1 to 5, with or without kidney disease, indicate chronic kidney disease. Notes: Determination of stages one and two (with eGFR >59mL/min/1.73 m2) requires estimation of kidney damage for at least three months as defined by structural or functional abnormalities of the kidney, manifested by either:Pathological abnormalities or Markers of kidney damage (including abnormalities in the composition of the blood or urine or abnormalities in imaging tests). Lab Interpretation Abnormal (test code = 96136-8) [facility] WITH [id number] 10:17:29 Test Item Value Reference Range Interpretation Comments WBC (test code = See_Comment [Automated 6690-2) message] The sy stem which generated this result transmitted reference range : 4.20 - 10.70 10*3/?L. The reference range was not used to interpret this result as normal/abnormal . RBC (test code = See_Comment L [Automated 789-8) message] The sy stem which generated this result transmitted reference range : 4.26 - 5.52 10*6/?L. The reference range was not used to interpret this result as normal/abnormal . HGB (test code = 10.0 g/dL 12.2-16.4 L 718-7) HCT (test code = 29.7 % 38.4-49.3 L 4544-3) MCV (test code = 83.2 fL 81.7-95.6 787-2) MCH (test code = 28.0 pg 26.1-32.7 785-6) MCHC (test code = 33.7 g/dL 31.2-35.0 786-4) RDW-SD (test code = 39.6 fL 38.5-51.6 03338-8) RDW-CV (test code = 13.1 % 12.1-15.4 788-0) PLT (test code = See_Comment H [Automated 777-3) message] The sy stem which generated this result transmitted reference range : 150 - 328 10*3/ ?L. The reference r heather was not used to interpret this result as normal/abnormal . MPV (test code = 10.3 fL 9.8-13.0 64349-0) NRBC/100 WBC (test See_Comment [Automat ed code = 7555708216) message] The system which generated this result transmitted reference range : 0.0 - 10.0 /100 WBCs. The refer ence range was not u sed to interpret th is result as normal/abnormal . NRBC x10^3 (test code <0.01 See_Comment [Auto mated = 5507118871) message] The s ystem which generated this result transmitted reference range : 10*3/?L. The reference range was not used to interpret this result as normal/abnormal . GRAN MAT (NEUT) % 57.4 % (test code = 770-8) IMM GRAN % (test code 0.80 % = 0332496018) LYMPH % (test code = 23.9 % 736-9) MONO % (test code = 12.2 % 5905-5) EOS % (test code = 4.9 % 713-8) BASO % (test code = 0.8 % 706-2) GRAN MAT x10^3(ANC) 5.18 10*3/uL 1.99-6.95 (test code = 0248762131) IMM GRAN x10^3 (test 0.07 10*3/uL 0.00-0.06 H code = 5597667146) LYMPH x10^3 (test code 2.15 10*3/uL 1.09-3.23 = 731-0) MONO x10^3 (test code 1.10 10*3/uL 0.36-1.02 H = 742-7) EOS x10^3 (test code = 0.44 10*3/uL 0.06-0.53 711-2) BASO x10^3 (test code 0.07 10*3/uL 0.01-0.09 = 704-7) Lab Interpretation Abnormal (test code = 39715-1) [facility] GLUCOSE (AUTOMATED)2021-06-03 22:40:15 Test Item Value Reference Range Interpretation Comments POCT GLU (test code = 9249457670) 120 mg/dL 70-110 H Lab Interpretation (test code = Abnormal 25563-9) [facility]icsSEDIMENTATION [id number] 22:39:55 Test Item Value Reference Range Interpretation Comments ESR (test code = >120 See_Comment H [Automated message] 3013487351) The system [employer] generated this result transmitted ref erence range: 0 - 10 m m/HR. The reference r heather was not used to interpret this result as normal/abnor mal. Lab Interpretation (test Abnormal code = 24549-4) [facility] GLUCOSE (AUTOMATED)2021-06-03 17:24:39 Test Item Value Reference Range Interpretation Comments POCT GLU (test code = 8756953931) 180 mg/dL 70-110 H Lab Interpretation (test code = Abnormal 39545-7) [facility])2021-06-03 13:50:55 Test Item Value Reference Range Interpretation Comments POCT GLU (test code = 2000002319) 122 mg/dL 70-110 H Lab Interpretation (test code = Abnormal 86783-1) [facility]ics[facility] T[facility] Level - Please draw trough BEFORE the 4th dose scheduled on 06/03 @ 0445, but no more than 60 mins before the dose is due.2021-06-03 12:19:53 Test Item Value Reference Range Interpretation Comments VANCO TROUGH (test code 9.4 ug/mL 10.0-20.0 L = 6791846264) SHIKHA (test code = SHIKHA) Toxic Range: ?>20 ug/mL 15-20 ug/mL is recommended for severe infection or when Vancomycin BLADIMIR is greater than or equal to 2. Lab Interpretation (test Abnormal code = 80277-3) [facility] (NA, K, CL, CO2, GLUCOSE, BUN, CREATININE, CA)2021-06-03 12:14:54 Test Item Value Reference Range Interpretation Comments NA (test code = 136 mmol/L 135-145 4323939903) K (test code = 4.2 mmol/L 3.5-5.0 7457068305) CL (test code = 107 mmol/L 98-108 6278556981) CO2 TOTAL (test code = 25 mmol/L 23-31 2057526559) AGAP (test code = 2-16 9424554962) BUN (test code = 11 mg/dL 7-23 4840808993) GLUCOSE (test code = 123 mg/dL 70-110 H 7319026675) CREATININE (test code = 0.68 mg/dL 0.60-1.25 1891900979) CALCIUM (test code = 8.3 mg/dL 8.6-10.6 L 6841264763) eGFR (test code = mL/min/1.73m2 8487714365) SHIKHA (test code = SHIKHA) Association of Glomerular Filtration Rate (GFR) and Staging of Kidney Disease* + --+ --+ ------+| GFR (mL/min/1.73 m2) ?| With Kidney Damage ?| ?Without Kidney Damage+ --------+ --------+ +| ?>90 ?| ?Stage one ?| ? Normal ?+ ---+ ---+ -------+| ?60-89 ?| ?Stage two ?| ? Decreased GFR ? + --+ --+ ------+| ?30-59 ?| ?Stage three ?| ? Stage three ? + --+ --+ ------+| ?15-29 ?| ?Stage four ? | ? Stage four ?+ ---+ ---+ -------+| ?<15 (or dialysis) ? ?| ?Stage five ? | ? Stage five ?+ ---+ ---+ -------+ *Each stage assumes the associated GFR level has been in effect for at least three months. ?Stages 1 to 5, with or without kidney disease, indicate chronic kidney disease. Notes: Determination of stages one and two (with eGFR >59mL/min/1.73 m2) requires estimation of kidney damage for at least three months as defined by structural or functional abnormalities of the kidney, manifested by either:Pathological abnormalities or Markers of kidney damage (including abnormalities in the composition of the blood or urine or abnormalities in imaging tests). Lab Interpretation Abnormal (test code = 35934-8) [facility] WITH [id number] 11:12:01 Test Item Value Reference Range Interpretation Comments WBC (test code = See_Comment [Automated 9590-2) message] The sy stem which generated this result transmitted reference range : 4.20 - 10.70 10*3/?L. The reference range was not used to interpret this result as normal/abnormal . RBC (test code = See_Comment L [Automated 093-8) message] The sy stem which generated this result transmitted reference range : 4.26 - 5.52 10*6/?L. The reference range was not used to interpret this result as normal/abnormal . HGB (test code = 8.8 g/dL 12.2-16.4 L 718-7) HCT (test code = 26.1 % 38.4-49.3 L 4544-3) MCV (test code = 83.4 fL 81.7-95.6 787-2) MCH (test code = 28.1 pg 26.1-32.7 785-6) MCHC (test code = 33.7 g/dL 31.2-35.0 786-4) RDW-SD (test code = 39.8 fL 38.5-51.6 98546-6) RDW-CV (test code = 13.2 % 12.1-15.4 788-0) PLT (test code = See_Comment H [Automated 777-3) message] The sy stem which generated this result transmitted reference range : 150 - 328 10*3/ ?L. The reference r heather was not used to interpret this result as normal/abnormal . MPV (test code = 9.6 fL 9.8-13.0 L 67704-8) NRBC/100 WBC (test See_Comment [Automat ed code = 6277332619) message] The system which generated this result transmitted reference range : 0.0 - 10.0 /100 WBCs. The refer ence range was not u sed to interpret th is result as normal/abnormal . NRBC x10^3 (test code <0.01 See_Comment [Auto mated = 4510392053) message] The s ystem which generated this result transmitted reference range : 10*3/?L. The reference range was not used to interpret this result as normal/abnormal . GRAN MAT (NEUT) % 62.4 % (test code = 770-8) IMM GRAN % (test code 0.40 % = 1325385863) LYMPH % (test code = 18.6 % 736-9) MONO % (test code = 13.5 % 5905-5) EOS % (test code = 4.6 % 713-8) BASO % (test code = 0.5 % 706-2) GRAN MAT x10^3(ANC) 5.88 10*3/uL 1.99-6.95 (test code = 2877076892) IMM GRAN x10^3 (test 0.04 10*3/uL 0.00-0.06 code = 6462487838) LYMPH x10^3 (test code 1.75 10*3/uL 1.09-3.23 = 731-0) MONO x10^3 (test code 1.27 10*3/uL 0.36-1.02 H = 742-7) EOS x10^3 (test code = 0.43 10*3/uL 0.06-0.53 711-2) BASO x10^3 (test code 0.05 10*3/uL 0.01-0.09 = 704-7) Lab Interpretation Abnormal (test code = 65010-7) [facility] GLUCOSE (AUTOMATED)2021-06-03 02:54:02 Test Item Value Reference Range Interpretation Comments POCT GLU (test code = 3113435869) 206 mg/dL 70-110 H Lab Interpretation (test code = Abnormal 13711-2) [facility] GLUCOSE (AUTOMATED)2021-06-02 23:12:33 Test Item Value Reference Range Interpretation Comments POCT GLU (test code = 7021231971) 158 mg/dL 70-110 H Lab Interpretation (test code = Abnormal 99266-3) [facility] GLUCOSE (AUTOMATED)2021-06-02 17:43:04 Test Item Value Reference Range Interpretation Comments POCT GLU (test code = 2004518374) 135 mg/dL 70-110 H Lab Interpretation (test code = Abnormal 86359-3) [facility] Metabolic Panel (NA, K, CL, CO2, GLUCOSE, BUN, CREATININE, CA)2021-06-02 15:15:59 Test Item Value Reference Range Interpretation Comments NA (test code = 136 mmol/L 135-145 6090465350) K (test code = 3.9 mmol/L 3.5-5.0 6870354029) CL (test code = 109 mmol/L 98-108 H 7129003670) CO2 TOTAL (test code = 25 mmol/L 23-31 0080583856) AGAP (test code = 2-16 9985916338) BUN (test code = 14 mg/dL 7-23 3707430343) GLUCOSE (test code = 101 mg/dL 70-110 2372867985) CREATININE (test code = 0.67 mg/dL 0.60-1.25 5821170413) CALCIUM (test code = 8.1 mg/dL 8.6-10.6 L 4886512274) eGFR (test code = mL/min/1.73m2 7766383482) SHIKHA (test code = SHIKHA) Association of Glomerular Filtration Rate (GFR) and Staging of Kidney Disease* + --+ --+ ------+| GFR (mL/min/1.73 m2) ?| With Kidney Damage ?| ?Without Kidney Damage+ --------+ --------+ +| ?>90 ?| ?Stage one ?| ? Normal ?+ ---+ ---+ -------+| ?60-89 ?| ?Stage two ?| ? Decreased GFR ? + --+ --+ ------+| ?30-59 ?| ?Stage three ?| ? Stage three ? + --+ --+ ------+| ?15-29 ?| ?Stage four ? | ? Stage four ?+ ---+ ---+ -------+| ?<15 (or dialysis) ? ?| ?Stage five ? | ? Stage five ?+ ---+ ---+ -------+ *Each stage assumes the associated GFR level has been in effect for at least three months. ?Stages 1 to 5, with or without kidney disease, indicate chronic kidney disease. Notes: Determination of stages one and two (with eGFR >59mL/min/1.73 m2) requires estimation of kidney damage for at least three months as defined by structural or functional abnormalities of the kidney, manifested by either:Pathological abnormalities or Markers of kidney damage (including abnormalities in the composition of the blood or urine or abnormalities in imaging tests). Lab Interpretation Abnormal (test code = 19509-5) [facility] GLUCOSE (AUTOMATED)2021-06-02 14:16:22 Test Item Value Reference Range Interpretation Comments POCT GLU (test code = 1391528608) 111 mg/dL 70-110 H Lab Interpretation (test code = Abnormal 91929-6) [facility] with [id number] 13:09:49 Test Item Value Reference Range Interpretation Comments WBC (test code = See_Comment H [Automated 6690-2) message] The sy stem which generated this result transmitted reference range : 4.20 - 10.70 10*3/?L. The reference range was not used to interpret this result as normal/abnormal . RBC (test code = See_Comment L [Automated 789-8) message] The sy stem which generated this result transmitted reference range : 4.26 - 5.52 10*6/?L. The reference range was not used to interpret this result as normal/abnormal . HGB (test code = 8.9 g/dL 12.2-16.4 L 718-7) HCT (test code = 27.4 % 38.4-49.3 L 4544-3) MCV (test code = 85.1 fL 81.7-95.6 787-2) MCH (test code = 27.6 pg 26.1-32.7 785-6) MCHC (test code = 32.5 g/dL 31.2-35.0 786-4) RDW-SD (test code = 41.2 fL 38.5-51.6 64677-8) RDW-CV (test code = 13.3 % 12.1-15.4 788-0) PLT (test code = See_Comment H [Automated 777-3) message] The sy stem which generated this result transmitted reference range : 150 - 328 10*3/ ?L. The reference r heather was not used to interpret this result as normal/abnormal . MPV (test code = 9.9 fL 9.8-13.0 67997-5) NRBC/100 WBC (test See_Comment [Automat ed code = 4439227602) message] The system which generated this result transmitted reference range : 0.0 - 10.0 /100 WBCs. The refer ence range was not u sed to interpret th is result as normal/abnormal . NRBC x10^3 (test code <0.01 See_Comment [Auto mated = 4164103083) message] The s ystem which generated this result transmitted reference range : 10*3/?L. The reference range was not used to interpret this result as normal/abnormal . GRAN MAT (NEUT) % 66.1 % (test code = 770-8) IMM GRAN % (test code 0.50 % = 0515964745) LYMPH % (test code = 17.6 % 736-9) MONO % (test code = 12.0 % 5905-5) EOS % (test code = 3.2 % 713-8) BASO % (test code = 0.6 % 706-2) GRAN MAT x10^3(ANC) 7.32 10*3/uL 1.99-6.95 H (test code = 1728516064) IMM GRAN x10^3 (test 0.06 10*3/uL 0.00-0.06 code = 2525303012) LYMPH x10^3 (test code 1.95 10*3/uL 1.09-3.23 = 731-0) MONO x10^3 (test code 1.33 10*3/uL 0.36-1.02 H = 742-7) EOS x10^3 (test code = 0.35 10*3/uL 0.06-0.53 711-2) BASO x10^3 (test code 0.07 10*3/uL 0.01-0.09 = 704-7) Lab Interpretation Abnormal (test code = 64924-6) [facility] GLUCOSE (AUTOMATED)2021-06-02 03:13:01 Test Item Value Reference Range Interpretation Comments POCT GLU (test code = 0105293439) 103 mg/dL 70-110 Lab Interpretation (test code = Normal 55689-1) [facility] ([facility]C)2021-06-02 00:25:37 Test Item Value Reference Range Interpretation Comments HGB A1C (test code = 7.2 % 4.0-5.7 H 4548-4) SHIKHA (test code = SHIKHA) Reference RangesNormal: <5.7%Prediabetes: 5.7 - 6.4%Diabetes: > 6.5% Lab Interpretation (test Abnormal code = 27720-8) [facility] GLUCOSE (AUTOMATED)2021-06-01 23:22:23 Test Item Value Reference Range Interpretation Comments POCT GLU (test code = 0051647168) 105 mg/dL 70-110 Lab Interpretation (test code = Normal 67628-5) [facility]icsCOMP[facility] METABOLIC PANEL (09218)2021-06-01 21:02:31 Test Item Value Reference Range Interpretation Comments NA (test code = 134 mmol/L 135-145 L 5108804502) K (test code = 4.9 mmol/L 3.5-5.0 4023954036) CL (test code = 101 mmol/L 98-108 0967561355) CO2 TOTAL (test code = 28 mmol/L 23-31 0105956781) AGAP (test code = 2-16 9790670724) BUN (test code = 21 mg/dL 7-23 8192026225) GLUCOSE (test code = 121 mg/dL 70-110 H 1001731285) CREATININE (test code = 0.88 mg/dL 0.60-1.25 0166073330) TOTAL BILI (test code = 0.4 mg/dL 0.1-1.2 0929616285) CALCIUM (test code = 8.7 mg/dL 8.6-10.6 6867918503) T PROTEIN (test code = 7.5 g/dL 6.3-8.2 3064384019) ALBUMIN (test code = 3.9 g/dL 3.5-5.0 7141936748) ALK PHOS (test code = 103 U/L 34-122 3844504988) ALTv (test code = 20 U/L 5-50 2-6) AST(SGOT) (test code = 26 U/L 13-40 5033409473) eGFR (test code = mL/min/1.73m2 3244782180) SHIKHA (test code = SHIKHA) Association of Glomerular Filtration Rate (GFR) and Staging of Kidney Disease* + --+ --+ ------+| GFR (mL/min/1.73 m2) ?| With Kidney Damage ?| ?Without Kidney Damage+ --------+ --------+ +| ?>90 ?| ?Stage one ?| ? Normal ?+ ---+ ---+ -------+| ?60-89 ?| ?Stage two ?| ? Decreased GFR ? + --+ --+ ------+| ?30-59 ?| ?Stage three ?| ? Stage three ? + --+ --+ ------+| ?15-29 ?| ?Stage four ? | ? Stage four ?+ ---+ ---+ -------+| ?<15 (or dialysis) ? ?| ?Stage five ? | ? Stage five ?+ ---+ ---+ -------+ *Each stage assumes the associated GFR level has been in effect for at least three months. ?Stages 1 to 5, with or without kidney disease, indicate chronic kidney disease. Notes: Determination of stages one and two (with eGFR >59mL/min/1.73 m2) requires estimation of kidney damage for at least three months as defined by structural or functional abnormalities of the kidney, manifested by either:Pathological abnormalities or Markers of kidney damage (including abnormalities in the composition of the blood or urine or abnormalities in imaging tests). Lab Interpretation Abnormal (test code = 09840-5) [facility] WITH [id number] 20:55:09 Test Item Value Reference Range Interpretation Comments WBC (test code = See_Comment H [Automated 6690-2) message] The sy stem which generated this result transmitted reference range : 4.20 - 10.70 10*3/?L. The reference range was not used to interpret this result as normal/abnormal . RBC (test code = See_Comment L [Automated 789-8) message] The sy stem which generated this result transmitted reference range : 4.26 - 5.52 10*6/?L. The reference range was not used to interpret this result as normal/abnormal . HGB (test code = 9.9 g/dL 12.2-16.4 L 718-7) HCT (test code = 30.7 % 38.4-49.3 L 4544-3) MCV (test code = 86.2 fL 81.7-95.6 787-2) MCH (test code = 27.8 pg 26.1-32.7 785-6) MCHC (test code = 32.2 g/dL 31.2-35.0 786-4) RDW-SD (test code = 41.8 fL 38.5-51.6 92693-5) RDW-CV (test code = 13.2 % 12.1-15.4 788-0) PLT (test code = See_Comment H [Automated 777-3) message] The sy stem which generated this result transmitted reference range : 150 - 328 10*3/ ?L. The reference r heather was not used to interpret this result as normal/abnormal . MPV (test code = 9.3 fL 9.8-13.0 L 45997-6) NRBC/100 WBC (test See_Comment [Automat ed code = 8526102001) message] The system which generated this result transmitted reference range : 0.0 - 10.0 /100 WBCs. The refer ence range was not u sed to interpret th is result as normal/abnormal . NRBC x10^3 (test code <0.01 See_Comment [Auto mated = [id number]) message] The s ystem which generated this result transmitted reference range : 10*3/?L. The reference range was not used to interpret this result as normal/abnormal . GRAN MAT (NEUT) % 73.6 % (test code = 770-8) IMM GRAN % (test code 0.70 % = 3509255103) LYMPH % (test code = 13.2 % 736-9) MONO % (test code = 9.9 % 5905-5) EOS % (test code = 2.2 % 713-8) BASO % (test code = 0.4 % 706-2) GRAN MAT x10^3(ANC) 9.18 10*3/uL 1.99-6.95 H (test code = 8146189205) IMM GRAN x10^3 (test 0.09 10*3/uL 0.00-0.06 H code = 1303381445) LYMPH x10^3 (test code 1.65 10*3/uL 1.09-3.23 = 731-0) MONO x10^3 (test code 1.24 10*3/uL 0.36-1.02 H = 742-7) EOS x10^3 (test code = 0.28 10*3/uL 0.06-0.53 711-2) BASO x10^3 (test code 0.05 10*3/uL 0.01-0.09 = 704-7) Lab Interpretation Abnormal (test code = 84474-9) [facility]"
[2022-04-09 14:05] LABS: Absolute Lymphocytes (CBC) 1.2 K/uL (0.7-4.9); Hematocrit 23.4 % (39.6-49.0); Lymphocytes % 11.3 % (15.3-44.8); MCV 82.2 fL (80-100); RBC Red Blood Cell Count 2.85 M/uL (4.33-5.43)
[2022-04-09 14:17] LABS: SARS-CoV-2 Antigen Rapid Res Negative (Negative)
[2022-04-09 14:23] LABS: Albumin 2.8 g/dL (3.4-5.0); Bilirubin Total 0.3 mg/dL (0.2-1.0); Potassium 4.4 mmol/L (3.5-5.1); Protein, Total 9.4 g/dL (6.4-8.2)
[2022-04-09 14:26] LABS: Protime INR 1.23
--- NOTE | 2022-04-09 14:34 | RAD REPORT ---
EXAM DESCRIPTION: US - Lower Extremity Artery Uni Ltd - 04/09/2022 2:19 pm CLINICAL HISTORY: PAIN COMPARISON: <Comparisons> TECHNIQUE: Doppler evaluation of the left leg arterial tree performed. Waveforms and velocity values were obtained along with visual inspection. FINDINGS: No occlusion or focal flow restricting lesion identified. Triphasic waveform pattern ident ifiable in the left common femoral, femoral and popliteal arteries. Monophasic waveforms seen in the posterior tibial and dorsalis pedis arteries. Popliteal artery velocity elevation noted but without v isible focal plaque or luminal narrowing.Mild scattered atherosclerotic wall atherosclerotic changes are present. IMPRESSION: Mild lower extremity peripheral vascular disease present with monophasic waveforms seen in the distal left leg. No occlusion or focal flow restricting lesion identified.
--- NOTE | 2022-04-09 14:35 | RAD REPORT ---
EXAM DESCRIPTION: US - Extremity Venous Uni Ltd - 04/09/2022 2:19 pm CLINICAL HISTORY: Painleg COMPARISON: None. TECHNIQUE: Real-time sonographic evaluation of the left lower extremity deep venous system was perfo rmed. FINDINGS: Normal compressibility, flow augmentation, phasic flow and spontaneous flow are identified in the left lower extremity common femoral, superficial femoral, popliteal and posterior tibial vein s. No intraluminal filling defects seen. Multiple left groin lymph nodes are present largest 3.4 x 1.5 cm. Largest lymph node has a defined fa tty hilum filling the lymph node volume. These show mostly reactive characteristics rather than patho logic lymphadenopathy. These can be monitored as clinical findings warrant. IMPRESSION: No DVT in the left lower extremity. Left groin lymphadenopathy appearing to be reactive. These can be monitored as clinical findings jessica ant.
--- NOTE | 2022-04-09 14:44 | RAD REPORT ---
EXAM DESCRIPTION: US - Abdomen Exam Limited - 04/09/2022 2:23 pm CLINICAL HISTORY: ABD PAIN COMPARISON: Abdomen Exam Limited dated 09/10/2021 FINDINGS: Gallbladder is contracted. Fasting state of the patient is unknown. Multiple echogenic foc i are seen along the gallbladder wall. Several show posterior acoustic enhancement. Adenomyomatosis p attern was seen on the September 10 study and again on today's examination. No clearly defined gallstones. No large quantity of sludge is identifiable. Wall thickness is accentuated by contracted state. Abnor mal wall thickening is not seen. No pericholecystic fluid. No common duct stone or biliary tree dilatation identified. IMPRESSION: Limited gallbladder assessment due to contracted state. No gallstones confirmed. Fasting status of the patient is unknown. If the patient was adequately fasting in the gallbladder wi th still contracted, poor gallbladder function may be present and can be evaluated with follow-up out patient HIDA scan. Adenomyomatosis findings are seen in the gallbladder wall similar to the August 2021 study.
--- NOTE | 2022-04-09 15:53 | RAD REPORT ---
EXAM DESCRIPTION: RAD - Foot Left 3 View - 04/09/2022 3:32 pm CLINICAL HISTORY: PAIN COMPARISON: No comparisons FINDINGS: Provided history indicates prior amputation of the fourth and fifth toes on the left. Thes e toes are absent on imaging along with the distal half of the fifth metatarsal and the distal 1/3 of the fourth metatarsal. There are numerous small bone fragments in the soft tissues or bone has been resected. The small remnant bone fragments are more typical of a bone destructive process rather than a clean osteotomy site. No comparison imaging is available. 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 No abnormal air in the soft tissues. The first-third toes and metatarsals show no acute findings. Patient has arterial tree calcifications . No midfoot or calcaneus acute finding. No foreign body in the soft tissues. No abnormal air densities. IMPRESSION: Provided history indicates fourth and fifth toe amputation of the full extent of surgery is not known and no comparison is available. The fourth and fifth toes are absent along with distal portions of the fourth and fifth metatarsals. Small bone fragments or calcifications seen in the soft tissues of the distal fourth and fifth metata rsal regions and toes. Findings are not a typical clean osteotomy site of an amputation. 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
--- NOTE | 2022-04-09 16:49 | ER ---
Nurse's Notes [facility] Name: Zach Isabel Age: 56 yrs Sex: Male : 1965 Arrival Date: 04/09/2022 Time: 13:09 Bed 7 Private MD: Diagnosis: Cellulitis of left lower limb;Foot Laceration/ Open wound of foot Presentation: 04/09 13:22 Chief complaint: Patient states: RUQ pain, N/V/D and fever x 4 days. Sent by PCP for ss evaluation of gallbladder and possible cellulitis to L foot. Coronavirus screen: Client denies travel out of the [place] in the last 14 days. Ebola Screen: Patient denies exposure to infectious person. Patient denies travel to an Ebola-affected area in the 21 days before illness onset. Initial Sepsis Screen: Does the patient meet any 2 criteria? No. Patient's initial sepsis screen is negative. Does the patient have a suspected source of infection? No. Patient's initial sepsis screen is negative. Risk Assessment: Do you want to hurt yourself or someone else? Patient reports no desire to harm self or others. Onset of symptoms was April 05, 2022. 13:22 Method Of Arrival: Ambulatory ss 13:22 Acuity: BRAD 3 ss Historical: - Allergies: 13:25 No Known Allergies; ss - Home Meds: 13:25 amlodipine 2.5 mg tab 1 tab once daily [Active]; clopidogrel 75 mg oral tab 1 tab once ss daily [Active]; glimepiride 2 mg Oral tab 1 tab once daily [Active]; lisinopril 20 mg Oral tab 1 tab twice a day [Active]; metformin 1,000 mg Oral tr24 1 tab once daily [Active]; rosuvastatin 10 mg oral tab 1 tab once daily [Active]; pioglitazone 15 mg oral tab 1 tab once daily [Active]; - PMHx: 13:25 Hypertensive disorder; Hyperlipidemia; Diabetes mellitus; PVD; ss - PSHx: 13:25 amputation of 4th and 5th toe L; ss - Immunization history:: Client reports receiving the 2nd dose of the Covid vaccine, Last tetanus immunization: up to date Patient states he got the shot one year ago. - Social history:: Smoking status: Patient denies any tobacco usage or history of. Screenin:48 Abuse screen: Denies threats or abuse. Denies injuries from another. Nutritional ld1 screening: No deficits noted. Tuberculosis screening: No symptoms or risk factors identified. 19:33 [facility] ED Fall Risk Assessment (Adult) History of falling in the last 3 months, tw5 including since admission No falls in past 3 months (0 pts). Assessment: 14:48 General: Appears in no apparent distress. comfortable, Behavior is calm, cooperative, ld1 appropriate for age. Pain: Denies pain. Neuro: Level of Consciousness is awake, alert, obeys commands, Oriented to person, place, time, situation. Cardiovascular: Capillary refill < 3 seconds Patient's skin is warm and dry. Respiratory: Airway is patent Respiratory effort is even, unlabored. GI: Abdomen is flat, non-distended, Bowel sounds present X 4 quads. Abd is soft and non tender. : No signs and/or symptoms were reported regarding the genitourinary system. EENT: No signs and/or symptoms were reported regarding the EENT system. Derm: No signs and/or symptoms reported regarding the dermatologic system. Musculoskeletal: No signs and/or symptoms reported regarding the musculoskeletal system. 17:01 Reassessment: Patient appears in no apparent distress at this time. No changes from vg1 previously documented assessment. Patient and/or family updated on plan of care and expected duration. Pain level reassessed. Patient is alert, oriented x 3, equal unlabored respirations, skin warm/dry/pink. 19:32 General: Patient is primarily Lao speaking. Patient reports pain in his stomach on tw5 the right upper quadrant. . Pain: Complains of pain in right upper quadrant Pain currently is 5 out of 10 on a pain scale. Respiratory: Airway is patent Trachea midline Respiratory effort is even, unlabored, Respiratory pattern is tachypnea. 19:33 Derm: Wound noted ball of left foot, left first toe, left second toe and left third toe.tw5 19:35 General: states " He stepped on a nail 10 days ago.". tw5 21:17 Reassessment: No changes from previously documented assessment. Patient is alert, tw5 oriented x 3, equal unlabored respirations, skin warm/dry/pink. Vital Signs: 13:22 BP 174 / 84; Pulse 100; Resp 16; Temp 97.7(O); Pulse Ox 100% on R/A; Weight 90.72 kg; ss Height 5 ft. 7 in. (170.18 cm); Pain 5/10; 14:48 BP 152 / 68; Pulse 95; Resp 16; Pulse Ox 100% on R/A; ld1 16:30 BP 165 / 83; Pulse 96; Resp 12; Pulse Ox 100% on R/A; vg1 19:16 BP 182 / 96; Pulse 96; Resp 22; Pulse Ox 98% on R/A; tw5 19:32 BP 182 / 96; Pulse 106; Resp 22; Temp 98.9; Pulse Ox 99% on R/A; Pain 5/10; tw5 21:16 BP 121 / 108; Pulse 89; Resp 20; Pulse Ox 98% on R/A; tw5 22:13 BP 128 / 74; Pulse 94; Resp 20; Pulse Ox 100% on R/A; ll3 13:22 Body Mass Index 31.32 (90.72 kg, 170.18 cm) ED Course: 13:09 Patient arrived in ED. mr 13:12 Rachele Becerra FNP-C is PHCP. kb 13:12 Roberto Jackson DO is Attending Physician. kb 13:25 Triage completed. ss 13:25 Arm band placed on right wrist. ss 13:47 Marsha Boone, RN is Primary Nurse. ld1 13:47 SARS RAPID Sent. ld1 13:48 Second set of blood cultures drawn Right hand. vg1 14:21 Extremity Venous Uni Ltd US In Process Unspecified. EDMS 14:21 US LE Artery Uni Ltd In Process Unspecified. EDMS 14:24 US Abdomen Limited In Process Unspecified. EDMS 14:48 Patient has correct armband on for positive identification. Placed in gown. Bed in low ld1 position. Call light in reach. Side rails up X2. Pulse ox on. NIBP on. Door closed. Noise minimized. Warm blanket given. 14:48 No provider procedures requiring assistance completed. Inserted saline lock: 20 gauge ld1 in left antecubital area, using aseptic technique. Blood collected. 15:34 Foot Left 3 View XRAY In Process Unspecified. EDMS 16:48 Noah Peña MD is Hospitalizing Provider. kb 19:27 Blood Culture Adult (2) Sent. tw5 19:39 Type And Screen Sent. tw5 21:18 Patient admitted, IV remains in place. tw5 Administered Medications: 16:59 Drug: Zosyn (piperacillin-tazobactam) 3.375 grams Route: IVPB; Infused Over: 60 mins; vg1 Site: left antecubital; 17:59 Follow up: IV Status: Infusion continued; IV Intake: 100ml vg1 Medication: 14:48 VIS not applicable for this client. ld1 Intake: 17:59 IV: 100ml; Total: 100ml. vg1 Outcome: 16:49 Decision to Hospitalize by Provider. kb 21:16 Admitted to Med/surg room 212, Report called to Attempted to call report. Brittany is with tw5 another patient at the moment and will call back 21:18 Condition: stable tw5 21:18 Instructed on the need for admit. 21:29 Admitted to Med/surg Report called to Attempted to call report again. Nurse gwyn unavailable at this time 21:43 Admitted to Med/surg Report called to Attempted to call report again. Was told nurse gwyn is still busy with another patient and will call back. 22:14 Patient left the ED. ll3 Signatures: Dispatcher [employer] EDNJ Rachele Becerra, VEGETABLE II FARMWORKER-C VEGETABLE II FARMWORKER-Ckb LeeLois mr Maricarmen Leung, RN Lynsey Abel RN KAYCEE segura1 Marsha Boone, KAYCEE RN Lina Andrews [facility] Shannan Cherry RN RN 3
--- NOTE | 2022-04-09 16:49 | EDPHYS ---
Physician Documentation [facility] Name: Zach Isabel Age: 56 yrs Sex: Male : 1965 Arrival Date: 04/09/2022 Time: 13:09 Bed 7 Private MD: ED Physician Roberto Jackson HPI: 04/09 13:39 This 56 yrs old Male presents to ER via Ambulatory with complaints of Feet kb Swelling, Abdominal Pain. 13:39 The patient presents with abdominal pain in the right upper quadrant. Onset: The kb symptoms/episode began/occurred 4 day(s) ago. The symptoms do not radiate. Associated signs and symptoms: Pertinent positives: nausea, vomiting, and diarrhea, fever. The symptoms are described as constant. Modifying factors: The symptoms are alleviated by nothing, the symptoms are aggravated by nothing. Severity of pain: At its worst the pain was moderate in the emergency department the pain is unchanged. The patient has not experienced similar symptoms in the past. The patient has been recently seen by a physician:. Pt reports RUQ pain, n/v/d, fever and chills for 4 days. Also reports wound to bottom of left foot that started about 10 days ago with swelling and redness that started yesterday. . Historical: - Allergies: 13:25 No Known Allergies; ss - Home Meds: 13:25 amlodipine 2.5 mg tab 1 tab once daily [Active]; clopidogrel 75 mg oral tab 1 tab once ss daily [Active]; glimepiride 2 mg Oral tab 1 tab once daily [Active]; lisinopril 20 mg Oral tab 1 tab twice a day [Active]; metformin 1,000 mg Oral tr24 1 tab once daily [Active]; rosuvastatin 10 mg oral tab 1 tab once daily [Active]; pioglitazone 15 mg oral tab 1 tab once daily [Active]; - PMHx: 13:25 Hypertensive disorder; Hyperlipidemia; Diabetes mellitus; PVD; ss - PSHx: 13:25 amputation of 4th and 5th toe L; ss - Immunization history:: Client reports receiving the 2nd dose of the Covid vaccine, Last tetanus immunization: up to date Patient states he got the shot one year ago. - Social history:: Smoking status: Patient denies any tobacco usage or history of. ROS: 13:35 Respiratory: Negative for shortness of breath, cough, wheezing, and pleuritic chest kb pain. 13:35 Constitutional: Positive for chills, fever. 13:35 Abdomen/GI: Positive for abdominal pain, nausea, vomiting, and diarrhea. 13:35 MS/extremity: Positive for erythema, pain, swelling, tenderness, of the left foot. 13:35 Skin: Positive for cellulitis, erythema, swelling, of the left foot. 13:35 All other systems are negative. Exam: 13:35 Constitutional: This is a well developed, well nourished patient who is awake, alert, kb and in no acute distress. Head/Face: Normocephalic, atraumatic. ENT: Moist Mucous membranes Cardiovascular: Regular rate and rhythm with a normal S1 and S2. No gallops, murmurs, or rubs. No pulse deficits. Respiratory: Respirations even and unlabored. No increased work of breathing. Talking in full sentences Back: No spinal tenderness. No costovertebral tenderness. Full range of motion. Neuro: Awake and alert, GCS 15, oriented to person, place, time, and situation. Moves all extremities. Normal gait. Psych: Awake, alert, with orientation to person, place and time. Behavior, mood, and affect are within normal limits. 13:35 Abdomen/GI: Inspection: abdomen appears normal, Bowel sounds: normal, in all quadrants, Palpation: soft, in all quadrants, mild abdominal tenderness, in the right upper quadrant. 13:35 Musculoskeletal/extremity: Extremities: grossly normal except: noted in the dorsum of left foot, left first toe and left second toe: erythema, pain, swelling, tenderness, ROM: intact in all extremities, Circulation is intact in all extremities. Sensation intact. Weight bearing: able to fully bear weight, surgical amputation of forth and fifth digits on left foot. 13:58 ECG was reviewed by the Attending Physician. Vital Signs: 13:22 BP 174 / 84; Pulse 100; Resp 16; Temp 97.7(O); Pulse Ox 100% on R/A; Weight 90.72 kg; ss Height 5 ft. 7 in. (170.18 cm); Pain 5/10; 14:48 BP 152 / 68; Pulse 95; Resp 16; Pulse Ox 100% on R/A; ld1 16:30 BP 165 / 83; Pulse 96; Resp 12; Pulse Ox 100% on R/A; vg1 19:16 BP 182 / 96; Pulse 96; Resp 22; Pulse Ox 98% on R/A; tw5 19:32 BP 182 / 96; Pulse 106; Resp 22; Temp 98.9; Pulse Ox 99% on R/A; Pain 5/10; tw5 21:16 BP 121 / 108; Pulse 89; Resp 20; Pulse Ox 98% on R/A; tw5 22:13 BP 128 / 74; Pulse 94; Resp 20; Pulse Ox 100% on R/A; ll3 13:22 Body Mass Index 31.32 (90.72 kg, 170.18 cm) ss MDM: 13:12 Patient medically screened. kb 13:35 Data reviewed: vital signs, nurses notes. Data interpreted: Pulse oximetry: on room air kb is 100 %. Interpretation: normal. 16:36 Counseling: I had a detailed discussion with the patient and/or guardian regarding: the kb historical points, exam findings, and any diagnostic results supporting the discharge/admit diagnosis, lab results, radiology results, the need for further work-up and treatment in the hospital. Physician consultation: Chato Suggs MD was contacted at 16:37, regarding consult, patient's condition, and will see patient. 16:47 Physician consultation: Catarino Loja NP was contacted at 16:48, regarding admission, kb to the medical/surgical unit. patient's condition, and will see patient in ED, accepts admission under Dr Peña. 04/09 13:22 Order name: Blood Culture Adult (2) kb 04/09 13:22 Order name: CBC with Diff; Complete Time: 14:17 kb 04/09 13:22 Order name: CMP; Complete Time: 14:24 kb 04/09 13:22 Order name: Lactate w/ 2H reflex if indic.; Complete Time: 14:17 kb 04/09 13:22 Order name: Protime (+inr); Complete Time: 14:30 kb 04/09 13:22 Order name: Ptt, Activated; Complete Time: 14:30 kb 04/09 13:22 Order name: Extremity Venous Uni Ltd US; Complete Time: 14:42 kb 04/09 13:22 Order name: US LE Artery Uni Ltd; Complete Time: 14:35 kb 04/09 13:22 Order name: US Abdomen Limited; Complete Time: 14:48 kb 04/09 13:25 Order name: SARS RAPID; Complete Time: 14:24 kb 04/09 14:03 Order name: Glucose, Ancillary Testing; Complete Time: 14:17 EDMS 04/09 14:30 Order name: Foot Left 3 View XRAY; Complete Time: 16:00 kb 04/09 19:05 Order name: Type And Screen la1 04/09 21:46 Order name: ABO/RH no charge; Complete Time: 21:47 EDMS 04/09 13:22 Order name: EKG; Complete Time: 13:23 kb 04/09 13:22 Order name: Accucheck; Complete Time: 13:55 kb 04/09 13:22 Order name: Cardiac monitoring; Complete Time: 13:55 kb 04/09 13:22 Order name: EKG - Nurse/Tech; Complete Time: 13:55 kb 04/09 13:22 Order name: IV Saline Lock - Large Bore; Complete Time: 13:47 kb 04/09 13:22 Order name: Labs collected and sent; Complete Time: 13:47 kb 04/09 13:22 Order name: O2 Per Protocol; Complete Time: 13:31 kb 04/09 13:22 Order name: O2 Sat Monitoring; Complete Time: 13:31 kb 04/09 13:22 Order name: Vital Signs; Complete Time: 13:31 kb EC:58 Rate is 87 beats/min. Rhythm is regular. QRS [place] is Normal. [place] interval is normal at kb 152 msec. QRS interval is normal at 82 msec. QT interval is normal at 409 msec. Administered Medications: 16:59 Drug: Zosyn (piperacillin-tazobactam) 3.375 grams Route: IVPB; Infused Over: 60 mins; vg1 Site: left antecubital; 17:59 Follow up: IV Status: Infusion continued; IV Intake: 100ml vg1 Disposition: 17:58 Co-signature as Attending Physician, Roberto GONZALEZ was immediately available on-site ms3 in the Emergency Department for consultation in the care of the patient. Disposition Summary: 04/09/22 16:49 Hospitalization Ordered Hospitalization Status: Inpatient Admission kb Provider: Noah Peña Location: Telemetry/MedSur (Inpatient) kb Condition: Stable kb Problem: new kb Symptoms: are unchanged kb Bed/Room Type: Standard Room Assignment: 212(04/09/22 21:11) cg Diagnosis - Cellulitis of left lower limb kb - Foot Laceration/ Open wound of foot kb Forms: - Medication Reconciliation Form kb - SBAR form kb Signatures: Dispatcher [employer] Rachele Corrigan, ROCHELLE MOJICA-Maricarmen Bolden RN RN ss Batool Garcia RN RN cg Garcia, Victoria, RN RN 1 Roberto Jackson DO DO ms3 Lina Still tw5 Corrections: (The following items were deleted from the chart) 21:11 16:49 kb cg
[2022-04-09] MEDS ORDERED: PIPERACIL/TAZO 3.375 GM VIAL IV ONE (16:56)
[2022-04-09] MEDS ORDERED: NA CHLORIDE 0.9% 100 ML IV ONE (16:56)
--- NOTE | 2022-04-09 19:55 | P.HP ---
Certification for Inpatient Patient admitted to: Inpatient With expected LOS: >2 Midnights Patient will require the following post-hospital care: None Practitioner: I am a practitioner with admitting privileges, knowledge of patient current condition, hospital course, and medical plan of care. Services: Services provided to patient in accordance with Admission requirements found in Title 42 Section 412.3 of the Code of Federal Regulations Patient History Date of Service: 04/09/22 Primary Care Provider: Dr. Amezcua Reason for admission: Osteomyelitis, anemia, abdominal pain History of Present Illness: 56-year-old male with history of hypertension, hyperlipidemia, nzx-heupzyk-ctigciyci diabetes, PVD, anemia presents to the emergency department for concern of infection left lower extremity as well as epigastric pain for last few days. He had previous amputation of the fourth and fifth digits of his left foot in April followed by another infection of the foot in May which was treated with IV antibiotics. He was previously recommended to have his gallbladder removed on an outpatient basis but had not yet scheduled this procedure. He was evaluated in the emergency department today his labs were significant for hemoglobin 7.8 hematocrit 23.4 MCV 82.2 platelets 496 sodium 133 creatinine 1.52 GFR 54 glucose 175 discussed case with general surgery who has previously performed endoscopy/colonoscopy on this patient without signs of GI bleeding, patient denies any melena, hematochezia, hematemesis. Has been pr eviously told he is anemic. Patient will be n.p.o. after midnight for surgical evaluation of suggested osteomyelitis of the left foot. Allergies No Known Allergies Allergy (Verified 08/17/21 08:15) Home Medications: Lisinopril [Zestril] 1 tab PO DAILY 08/14/21 Metformin HCl [Metformin ER Gastric] 1 tab PO BID 08/14/21 - Past Medical/Surgical History -: Udv-golclir-pixjrvmuz diabetes -: PVD -: Hypertension -: Hyperlipidemia -: Anemia -: GERD/gastritis -: Left fourth and fifth digit toe amputation Psychosocial/ Personal History: Patient lives at home with family - Family History Mother -: Hypertension, Diabetes Father -: Heart disease, Diabetes - Social History Smoking Status: Never smoker Alcohol use: No CD- Drugs: No Caffeine use: Yes Place of Residence: Home Review of Systems 10-point ROS is otherwise unremarkable Gastrointestinal: Nausea, Vomiting, Abdominal Pain Integumentary: Other (Swelling left foot with redness), As per HPI Physical Examination - Physical Exam General: Alert, In no apparent distress, Oriented x3 HEENT: Atraumatic, PERRLA, Mucous membr. moist/pink, EOMI, Sclerae nonicteric Neck: Supple Respiratory: Clear to auscultation bilaterally, Normal air movement Cardiovascular: No edema, Regular rate/rhythm, Normal S1 S2 Capillary refill: <2 Seconds Gastrointestinal: Normal bowel sounds, No rebound, No guarding, Tenderness (Mild RUQ/epigastric tenderness) Musculoskeletal: Swelling (Left foot), Erythema, Warmth Integumentary: Other (Small puncture wound plantar aspect left foot) Neurological: Normal speech, Normal strength at 5/5 x4 extr, Normal tone, Normal affect - Studies Laboratory Data (last 24 hrs) 04/09/22 13:41: PT 13.5 H, INR 1.23, APTT 33.1 04/09/22 13:41: Sodium 133 L, Potassium 4.4, BUN 23 H, Creatinine 1.52 H, Glucose 175 H, Total Bilirubin 0.3, AST 11 L, ALT 17, Alkaline Phosphatase 94 04/09/22 13:41: WBC 10.80, Hgb 7.8 L, Hct 23.4 L, Plt Count 496 H Assessment and Plan - Plan Assessment: Sepsis secondary to suspected osteomyelitis of left foot Abdominal pain/tenderness Normocytic anemia Diabetes mellitus type [id number] Hypertension Hyperlipidemia PAD/PVD BRYN Plan: Sepsis secondary to suspected osteomyelitis of left foot: SIRS criteria present including tachycardia, tachypnea plus source of infection with suspected osteomyelitis of the left foot. Blood cultures lactate obtained lactate is less than 2 no signs of significant endorgan damage does not meet criteria for severe sepsis or septic shock. Continue with antibiotics vancomycin/cefepime. General surgery consulted, case discussed n.p.o. to midnight for possible operative intervention of osteomyelitis. Abdominal pain/tenderness: General surgery consulted patient was previously instructed need to have his gallbladder removed on outpatient basis, he will be n.p.o. for unrelated surgical procedure. Continue as needed pain medications appreciate further input from general surgery. Normocytic anemia: Patient had previous/recent endoscopy/colonoscopy which did not identify any GI bleeding he was told he had gastritis/GERD. Additional anemia work-up ordered transfuse maintain hemoglobin greater than 7. Diabetes mellitus type [id number]: Every 6 hours Accu-Chek, sliding scale insulin, A1c in the morning. Hypertension: Continue home medications as appropriate Hyperlipidemia: Continue home medications as appropriate PAD/PVD: Hold Plavix until cleared by surgery. BRYN: Continue gentle IV fluids overnight, recheck renal function the morning. Counseled nephrology if there is significant worsening. DVT PPX: SCD Code status: Full Discharge Plan: Home Plan to discharge in: Greater than 2 days - Advance Directives Does patient have a Living Will: No Does patient have a Durable POA for Healthcare: No - Code Status/Comfort Care Code Status Assessed: Yes (Full code) Critical Care: No Time Spent Managing Pts Care (In Minutes): 70
[2022-04-09] MEDS ORDERED: ONDANSETRON 4 MG/2 ML VIAL IV PRN (22:42)
[2022-04-09] MEDS ORDERED: MORPHINE 2 MG/ML SYR IV PRN (22:42)
[2022-04-09] MEDS ORDERED: CEFEPIME 1 GM in NA CHLORIDE 0.9% 100 ML IV SCH (22:42)
[2022-04-09] MEDS ORDERED: ACETAMINOPHEN 500 MG TAB PO PRN (22:42)
[2022-04-09] MEDS ORDERED: VANCOMYCIN 1 GM in NA CHLORIDE 0.9% 250 ML IVPB SCH (22:42)
[2022-04-09] MEDS ORDERED: SODIUM CHLORIDE 0.9% 10ML INJ IV PRN (22:42)
[2022-04-09] MEDS ORDERED: VANCOMYCIN 1.5 GM in NA CHLORIDE 0.9% 500 ML IVPB SCH (23:00)
[2022-04-09] MEDS ORDERED: VANCOMYCIN 500 MG/VIAL ONE (23:26)
[2022-04-09] MEDS ORDERED: VANCOMYCIN 1 GM/VIAL ONE (23:26)
[2022-04-09] MEDS ORDERED: NA CHLORIDE 0.9% 500 ML ONE (23:26)
[2022-04-09] MEDS: INSULIN -REGULAR HUMAN 50 UNIT/0.5 ML ML SQ SCH (23:28)
[2022-04-09] MEDS: Ringers Lactate 1,000 ML IV SCH (23:28)
[2022-04-10 05:46] LABS: Specific Gravity 1.016 (1.005-1.030); Urine Bacteria <20 /HPF (<20); Urine Bilirubin NEGATIVE (Negative); Urine Blood Trace (Negative); Urine Clarity Clear (Clear); Urine Color Light-Yellow (Yellow); Urine Glucose NEGATIVE (Negative); Urine Protein 2+ (Negative); Urine Urobilinogen Normal (Normal)
[2022-04-10 06:10] LABS: Absolute Lymphocytes (CBC) 1.4 K/uL (0.7-4.9); Hematocrit 20.4 % (39.6-49.0); Lymphocytes % 13.7 % (15.3-44.8); MPV 6.8 fL (7.6-11.3); RBC Red Blood Cell Count 2.49 M/uL (4.33-5.43)
[2022-04-10 06:34] LABS: Albumin 2.4 g/dL (3.4-5.0); Bilirubin Total 0.2 mg/dL (0.2-1.0); Ferritin 208.1 ng/mL (26-388); Potassium 3.9 mmol/L (3.5-5.1); Protein, Total 7.8 g/dL (6.4-8.2)
[2022-04-10] MEDS: INSULIN -REGULAR HUMAN 50 UNIT/0.5 ML ML SQ SCH ×4 (07:30→20:26)
[2022-04-10] MEDS: Ringers Lactate 1,000 ML IV SCH (08:42)
[2022-04-10] MEDS ORDERED: PANTOPRAZOLE 40 MG INJ IVP SCH (09:00)
[2022-04-10] MEDS: CEFEPIME 2 GM in NA CHLORIDE 0.9% 100 ML IV SCH ×2 (09:20→20:26)
[2022-04-10] MEDS ORDERED: NA CHLORIDE 0.9% 250 ML ONE (10:06)
--- NOTE | 2022-04-10 11:27 | P.PN ---
Subjective Date of Service: 04/10/22 Primary Care Provider: Dr. Amezcua Chief Complaint: Osteomyelitis, anemia, abdominal pain Subjective: Improving (Patient is improving admitted with presumed osteomyelitis of the left foot according to the 's progress over the past [address] Castillo as an outpatient) Review of Systems 10-point ROS is otherwise unremarkable Gastrointestinal: Abdominal Pain Physical Examination - Vital Signs Temperature: 97.7 F Blood Pressure: 139/65 Pulse: 78 Respirations: 16 Pulse Ox (%): 97 - Physical Exam General: Alert, In no apparent distress, Oriented x3 Cardiovascular: No edema, Regular rate/rhythm Gastrointestinal: Normal bowel sounds, Tenderness (Mild tenderness on the right side) Musculoskeletal: No clubbing, No swelling - Studies Laboratory Data (last 24 hrs) 04/09/22 13:41: PT 13.5 H, INR 1.23, APTT 33.1 04/09/22 13:41: Sodium 133 L, Potassium 4.4, BUN 23 H, Creatinine 1.52 H, Glucose 175 H, Total Bilirubin 0.3, AST 11 L, ALT 17, Alkaline Phosphatase 94 04/09/22 13:41: WBC 10.80, Hgb 7.8 L, Hct 23.4 L, Plt Count 496 H Assessment And Plan - Current Problems (Diagnosis) (1) Osteomyelitis Current Visit: Yes Status: Acute Plan: Patient has osteomyelitis of the left foot there is gotten worse over the past [address] Castillo plan to continue with IV antibiotics possible change to p.o. tomorrow x-ray suggestive of osteomyelitis (2) Anemia Current Visit: Yes Status: Acute Plan: Patient has severe anemia was added endoscopy and a colonoscopy done follow-up with GI this is a normocytic anemia normal ferritin levels transferrin saturation presumed iron deficiency discussed with Dr. Castillo need to have his gallbladder removed at some stage Qualifiers: Anemia type: unspecified type Qualified Code(s): D64.9 - Anemia, unspecified
--- NOTE | 2022-04-10 12:30 | CON ---
Date of Consultation: 04/10/2022 Brief History Of Present Illness: The patient is a 56-year-old male known to me from previous encoun ter in clinic and with endoscopy approximately 7 months ago. He was seen in my clinic at that time w ith anemia. He had an upper GI endoscopy, as well as colonoscopy, which were nondiagnostic for his a nemia workup. He did have gastritis and some upper gastrointestinal findings, but none that would gordon ve accounted for the significant anemia he had chronically in the time prior to this and following th is particular occasion. He presents on this particular occasion to the hospital with complaints of l eft foot pain which has been getting progressively worse, particularly in the area of the third and s econd digits. He did have a previous fourth and fifth digit amputation in [place] which was difficult to treat. He had multiple months of ongoing wound care after this was performed. He had ultimately had Dr. Irving perform an endovascular improvement of his bad arterial blood supply in the area, at w hich point, his wound did heal of the left foot, fourth and fifth digits. However, he presents now w ith swelling, pain, beginning below the knee over the course of approximately a week or 2, progressiv jonna larger and more painful to the foot area. The swelling since has improved, however, the pain con tinued to the foot area. No drainage. No other findings by description. He does have a history of adenomyomatosis of the gallbladder. I saw him approximately 7 months ago and recommended and schedul ed laparoscopic cholecystectomy at that time. However, the patient developed pain in the cervical sp ine, ultimately had a C-spine MRI and was referred to neurologist for workup and had physical therapy for his neck issues which he wanted to remedy prior to any surgical intervention for his gallbladder . Now that he has completed that course and has improvement of his neck, he states that he would lik e to consider elective removal of his gallbladder in the future, but he currently presents predominan tly for the issue with his foot. Past Medical History: Significant for diabetes, peripheral vascular disease, hypertension, hyperlipi demia, anemia, GERD, gastritis, peripheral arterial disease. Allergies: NO KNOWN DRUG ALLERGIES. Home Medications: Include only Zestril and metformin. Past Surgical History: Includes upper endoscopy 7 months ago, as well as colonoscopy 7 months ago. Colonoscopy at that time showed no evidence of acute gastrointestinal bleed. Colonoscopy report is a vailable in the system for review. He also had fourth and fifth toes amputation on the same left ben t in [place] for peripheral arterial disease and diabetic foot wounds, which ultimately healed. Social History: He lives at home with his family. His mother had hypertension and diabetes. His fa ther had heart disease and diabetes. He denies smoking, alcohol, or recreational drug use. Review of Systems: Ten-point review of systems other than HPI, he did have some intermittent nausea, vomiting over the p ast week prior but the last week, he has had no gastrointestinal symptoms other than mild intermitten t pain in the epigastrium and right upper quadrant similar to his previous, but over the past week, yusef hardin only has that 1 symptom. No other acute symptoms and his pain has been improving he states in the abdomen. Physical Examination: Vital Signs: At the time of my examination, blood pressure 139/65, pulse is 78, respirations 16, tem perature 97.7, oxygen saturation 97% on room air. General: I have seen him with educational sign language interpreter in the room as the patient is Ethiopian-speaking, but genera l, he is awake, alert, oriented. Psychiatric: Appropriate and conversive. HEENT: Normocephalic. Sclerae icteric. Mucous membranes are moist. Oropharynx clear. Neck: Supple without JVD. Chest: Normal expansion and excursion. Cardiovascular: Regular rate and rhythm. Pulmonary: Clear to auscultation bilaterally. Abdomen: Soft with nontender, nondistended. No rebound. No guarding. No focal peritonitis. No te nderness in the right upper quadrant. No rebound. Negative Ochoa sign as well. Extremities: Focused examination of the left lower extremity shows evidence of peripheral arterial d isease with hair loss and decreased temperature as you extended near the foot. There is some redness and cellulitis to the second and third digits, as well as the great toe. The fourth and fifth toes on the left foot are amputated. The sites appear clean and dry. There is no evidence of active infe ction. There is no drainable collections in the area and the cellulitis is confined to the mid foot area. The right lower extremity has evidence of peripheral arterial disease as well with hair loss a nd somewhat similar distribution of decreased temperature as you extend near the foot, but no active infections in this area as well. Skin: Otherwise warm and dry. He had imaging performed, which included an x-ray of the foot which is officially read as the fourth and fifth toes were absent along the distal portion of the fourth and fifth metatarsals. Small bone fragments where calcifications seen in the soft tissues of the distal fourth and fifth metatarsal reg ions and toes. Findings are not typical clean osteotomy site of amputation. Findings are concerning for bone destructive osteomyelitis in the correlation of clinical exam findings. He had an ultrasou nd of the lower extremity, which was officially read as no DVT in left lower extremity. Left groin l ymphadenopathy appears to be reactive. Could be monitored for ongoing issues. Ultrasound arterial s howed a mild lower extremity peripheral vascular disease present with monophasic waveforms seen in th e distal leg. No occlusion or focal flow restricting lesions identified. There is triphasic pattern identified in the left common femoral and popliteal arteries. Monophasic waveform seen in the poste rior tibialis, posterior pedis, popliteal artery velocity elevation noted without visible focal plaqu e or luminal narrowing. Mild scattering atherosclerotic wall atherosclerotic changes are present. H e additionally had an ultrasound of the abdomen which is officially read as limited gallbladder asses sment due to contractible state. No gallstones confirmed. Fasting status of the patient is unknown as the patient was adequately fasting. The gallbladder still within contracted. Poor gallbladder fu nction may be present and may be elevated with followup outpatient HIDA scan. Adenomyomatosis findin gs are seen with gallbladder wall similar to August 2021 study. Assessment And Plan: This is a 56-year-old male who comes in with 3 predominant issues of note. 1.Adenomyomatosis and gallbladder abnormality: I have recommended laparoscopic cholecystectomy with indocyanine green as an outpatient approximately 7 months ago. The patient is now ready to discuss surgical timing and planning for his laparoscopic cholecystectomy as he currently has no significant symptoms and would like to pursue this as an outpatient. I have explained once again and reminded katherin guajardo of the risks, benefits, alternatives of laparoscopic cholecystectomy including but not limited to b leeding, infection, damage to surrounding tissues, injury to bile ducts, intestines, need for further operation procedures. I use indocyanine green routinely, and I have explained that he could have a reaction to this as well. The patient agreed to proceed as indicated as an outpatient. 2.Next issue of concern is with respect to anemia. The patient continues to have chronic anemia. H is anemia workup was not completed as an outpatient by primary care doctor or any other specialists a nd as such I have recommended a gastrointestinal consultation for continued workup of his anemia. Th e patient agrees to proceed with this. During the acute phase, patient has a hemoglobin of 6.9, and as such is being transfused 1 unit of PRBCs for his ongoing chronic anemia. There is no evidence of active gastrointestinal bleed as he is having normal soft brown bowel movements. No nausea, vomiting of concern and no evidence of active bleeding from this area. 3.With respect to his left lower extremity, I recommend topical antibiotic cream with Silvadene crea m topically, wrapping, elevation, and separation of the toes with ongoing examinations for the cellul itis. 4.I recommend continued antibiotic coverage for the left lower extremity cellulitis changes. He sta kristel he has had improvement since being in the hospital with decreased pain and the redness has recede d from this area. 5.I also recommend an endovascular evaluation to see if flow may be optimized to the area of concern . Improved blood flow will obviously improve his overall healing and hopefully prevent surgery. I yusef david explained that surgical intervention would require likely amputation at the level which will be d etermined by his level of arterial insufficiency, and as such, I would prefer to try nonoperative man agement first. If he is able to respond to this, I feel he would have a significant improvement if yusef hardin responds to medical treatment. If he does not respond to medical treatment, I have explained the r isks, benefits, and alternatives of amputation of toes, mid foot amputation, and higher level amputat ions including but not limited to bleeding, infection, damage to surrounding tissue, need further ope ration and procedures. The patient agrees to medical management at this time and we will consider casillas rgery if he fails medical management. 6.Continue medical management per Dr. Amezcua for his ongoing concomitant medical issues. I have e xplained to the patient also that he needs to have his diabetes under better control, as well as cont inued medical management for his other concomitant medical issues and to continue his anemia workup. The patient agrees to proceed as indicated. FAUSTINO/ROMINAL Voice ID: [id number] Report ID: [id number]
[2022-04-10 16:41] LABS: Hematocrit 25.6 % (39.6-49.0)
[2022-04-10] MEDS ORDERED: VANCOMYCIN 1.25 GM in NA CHLORIDE 0.9% 250 ML IVPB SCH (17:00)
[2022-04-11 03:57] LABS: Absolute Lymphocytes (CBC) 1.4 K/uL (0.7-4.9); Hematocrit 24.6 % (39.6-49.0); MCV 82.9 fL (80-100); MPV 6.9 fL (7.6-11.3); RBC Red Blood Cell Count 2.97 M/uL (4.33-5.43)
[2022-04-11 04:17] LABS: Albumin 2.3 g/dL (3.4-5.0); Bilirubin Total 0.3 mg/dL (0.2-1.0); Potassium 4.2 mmol/L (3.5-5.1)
[2022-04-11] MEDS: INSULIN -REGULAR HUMAN 50 UNIT/0.5 ML ML SQ SCH ×4 (07:30→21:00)
[2022-04-11] MEDS ORDERED: levoFLOXacin 750 MG TAB PO SCH (09:00)
[2022-04-11] MEDS: AMOX/K CLAV 875 MG TAB PO SCH ×2 (09:49→20:45)
[2022-04-11] MEDS: LINEZOLID 600 MG TAB PO SCH ×2 (09:49→20:46)
[2022-04-11] MEDS: SILVER SULFADIAZINE 1% 25 GM TOP SCH (09:49)
[2022-04-11] MEDS ORDERED: Oxycodone HCl/Acetaminophen 1 TAB TAB PO PRN (10:11)
--- NOTE | 2022-04-11 10:12 | P.PN ---
Subjective Date of Service: 04/11/22 Primary Care Provider: Dr. Amezcua Chief Complaint: Osteomyelitis, anemia, abdominal pain Subjective: Improving (Patient is improving pain has decreased) Review of Systems 10-point ROS is otherwise unremarkable Physical Examination - Vital Signs Temperature: 97.9 F Blood Pressure: 164/76 Pulse: 80 Respirations: 18 Pulse Ox (%): 97 - Physical Exam General: Alert, In no apparent distress, Oriented x3 Cardiovascular: No edema, Regular rate/rhythm, Normal S1 S2 Gastrointestinal: Normal bowel sounds, Soft and benign Assessment And Plan - Current Problems (Diagnosis) (1) Osteomyelitis Current Visit: Yes Status: Acute Plan: Admitted with osteomyelitis doing well white count is normal as per Dr. Castillo will change analyst to p.o. antibiotics Augmentin with Zyvox cultures are so far negative change analyst to p.o. Percocet DC IV morphine blood pressure is mildly elevated (2) Anemia Current Visit: Yes Status: Acute Plan: Hemoglobin is stable Qualifiers: Anemia type: unspecified type Qualified Code(s): D64.9 - Anemia, unspecified (3) Diabetes Current Visit: Yes Status: Acute Plan: Plan to resume his home medication which includes metformin and glimepiride Sliding scale only he also takes Plavix Qualifiers: Diabetes mellitus type: type 2
[2022-04-11] MEDS: lisinopriL 20 MG TAB PO SCH (12:03)
[2022-04-11] MEDS: CLOPIDOGREL 75 MG TABLET PO SCH (12:03)
[2022-04-11] MEDS: GLIMEPIRIDE 2 MG TABLET PO SCH (16:21)
[2022-04-11] MEDS: METFORMIN HCL 500 MG TAB PO SCH (16:21)
--- NOTE | 2022-04-11 17:04 | EKG ---
Test Date: 2022-04-09 Test Time: 13:51:46 Sprigger: BHARAT MEASUREMENT RESULTS: Intervals: Rate: 87 MN: 152 QRSD: 82 QT: 340 QTc: 409 [place]: P: 53 MN: 152 QRS: 79 T: 23 INTERPRETIVE STATEMENTS: Normal sinus rhythm Normal ECG Compared to ECG 08/14/2021 14:54:09 No significant changes Electronically Signed On 04-11-22 17:02:12 CRANE MAN by Raudel Pink
[2022-04-11 23:45] VITALS: O2SAT 98
[2022-04-12 01:53] VITALS: BMI 30.6
[2022-04-12 04:34] LABS: Absolute Lymphocytes (CBC) 1.5 K/uL (0.7-4.9); Hematocrit 25.1 % (39.6-49.0); Lymphocytes % 13.6 % (15.3-44.8); MPV 6.9 fL (7.6-11.3); RBC Red Blood Cell Count 3.02 M/uL (4.33-5.43)
[2022-04-12 04:52] LABS: Albumin 2.4 g/dL (3.4-5.0); Bilirubin Total 0.3 mg/dL (0.2-1.0); Potassium 4.1 mmol/L (3.5-5.1); Protein, Total 8.3 g/dL (6.4-8.2)
[2022-04-12 05:39] VITALS: TEMP 97.6
[2022-04-12] MEDS: INSULIN -REGULAR HUMAN 50 UNIT/0.5 ML ML SQ SCH ×2 (07:30→11:29)
[2022-04-12] MEDS: lisinopriL 20 MG TAB PO SCH (08:46)
[2022-04-12] MEDS: CLOPIDOGREL 75 MG TABLET PO SCH (08:46)
[2022-04-12] MEDS: AMOX/K CLAV 875 MG TAB PO SCH (08:46)
[2022-04-12] MEDS: GLIMEPIRIDE 2 MG TABLET PO SCH (08:46)
[2022-04-12] MEDS: LINEZOLID 600 MG TAB PO SCH (08:47)
[2022-04-12] MEDS: SILVER SULFADIAZINE 1% 25 GM TOP SCH (08:47)
[2022-04-12] MEDS: METFORMIN HCL 500 MG TAB PO SCH (08:47)
--- NOTE | 2022-04-12 11:29 | P.DS ---
Admission Date: 04/09/22 Discharge Date: 04/12/22 Primary Care Provider: Dr. Amezcua Disposition: ROUTINE DISCHARGE Discharge Condition: GOOD Reason for Admission: Osteomyelitis, anemia, abdominal pain - Problems (1) Osteomyelitis Current Visit: Yes Status: Acute Qualifiers: Osteomyelitis type: unspecified type Osteomyelitis location: foot Laterality: left Qualified Code(s): M86.9 - Osteomyelitis, unspecified (2) Anemia Current Visit: Yes Status: Acute Qualifiers: Anemia type: unspecified type Qualified Code(s): D64.9 - Anemia, unspecified (3) Diabetes Current Visit: Yes Status: Acute Qualifiers: Diabetes mellitus type: type 2 Diabetes mellitus complication status: with circulatory complication Brief History of Present Illness: Patient is 56 years of age. With left foot pain and discoloration Hospital Course: He was admitted treated with IV antibiotics seen by Dr. Castillo changed to p.o. antibiotics and he felt he was stable enough to be discharged and is white count is normal cultures are negative other instructions as per Dr. Castillo patient also has chronic anemia and he is seeing Dr. Castillo alluding problems with his gallbladder which already has been detailed in his consult Vital Signs/Physical Exam: Temp Pulse Resp BP Pulse Ox 97.6 F 83 14 160/75 H 98 04/12/22 07:56 04/12/22 08:46 04/12/22 07:56 04/12/22 08:46 04/12/22 07:56 Laboratory Data at Discharge: WBC 10.70 K/uL (4.3-10.9) 04/12/22 03:44 Hgb 8.4 g/dL (13.6-17.9) L 04/12/22 03:44 Hct 25.1 % (39.6-49.0) L 04/12/22 03:44 Plt Count 456 K/uL (152-406) H 04/12/22 03:44 PT 13.5 SECONDS (9.5-12.5) H 04/09/22 13:41 INR 1.23 04/09/22 13:41 APTT 33.1 SECONDS (24.3-36.9) 04/09/22 13:41 Sodium 133 mmol/L (136-145) L 04/12/22 03:44 Potassium 4.1 mmol/L (3.5-5.1) 04/12/22 03:44 BUN 12 mg/dL (7-18) 04/12/22 03:44 Creatinine 1.32 mg/dL (0.70-1.30) H 04/12/22 03:44 Glucose 99 mg/dL (74-106) 04/12/22 03:44 Total Bilirubin 0.3 mg/dL (0.2-1.0) 04/12/22 03:44 AST 10 U/L (15-37) L 04/12/22 03:44 ALT 16 U/L (16-61) 04/12/22 03:44 Alkaline Phosphatase 79 U/L (45-117) 04/12/22 03:44 Home Medications: Lisinopril [Zestril] 1 tab PO DAILY 08/14/21 Metformin HCl [Metformin ER Gastric] 1 tab PO BID 08/14/21 Amox/Clavulanate [Augmentin 875-125 Tab*] 875 mg PO BID 14 Days #28 tab 04/12/22 Linezolid [Zyvox*] 600 mg PO BID 14 Days #28 tab 04/12/22 New Medications: Amox/Clavulanate [Augmentin 875-125 Tab*] 875 mg PO BID 14 Days #28 tab Linezolid [Zyvox*] 600 mg PO BID 14 Days #28 tab Physician Discharge Instructions: With respect to his left lower extremity, I recommend topical antibiotic cream with Silvadene cream topically, wrapping, elevation, and separation of the toes with ongoing examinations for the cellulitis. Followup: Chato Suggs MD [ACTIVE - CAN ADMIT] - NONE,NONE [Primary Care Provider] -
[2022-04-12 11:40] VITALS: BP 149/73
== END 2022-04-12 12:35 | disposition home or self-care (01) | DRG 872 ==
LOC: ER 13:05 → ERHOLD 19:10 → 2ND 21:15
PROVIDERS: ADMIT Internal Medicine Sleep Medicine; ATTEND Internal Medicine Sleep Medicine
PROC: 30233N1 Transfusion of Nonautologous Red Blood Cells into Peripheral Vein, Percutaneous Approach (ICD-10-PCS; principal; 2022-04-10)
DX: A41.9 Sepsis, unspecified organism (principal); L03.116 Cellulitis of left lower limb; N17.9 Acute kidney failure, unspecified; M86.172 Other acute osteomyelitis, left ankle and foot; E11.69 Type 2 diabetes mellitus with other specified complication; E11.51 Type 2 diabetes mellitus with diabetic peripheral angiopathy without gangrene; E11.59 Type 2 diabetes mellitus with other circulatory complications; D64.9 Anemia, unspecified; I10 Essential (primary) hypertension; E78.5 Hyperlipidemia, unspecified; K21.9 Gastro-esophageal reflux disease without esophagitis; S91.312A Laceration without foreign body, left foot, initial encounter; Z79.02 Long term (current) use of antithrombotics/antiplatelets; Z79.84 Long term (current) use of oral hypoglycemic drugs; Z79.899 Other long term (current) drug therapy; Z89.422 Acquired absence of other left toe(s); Z20.822 Contact with and (suspected) exposure to COVID-19
CPT/HCPCS: 36415; 76705; 80053; 81001; 82728; 82947; 83010; 83036; 83540; 83605; 83615; 84466; 85014; 85018; 85025; 85610; 85730; 86850; 86900; 86901; 87040; 87070; 87205; 87811; 93005; 93926; 93971; 96365; 99285; C9113; J0692; J1815; J2405; J2543; J3370; J7040; J7050; J7120; P9016